=== PATIENT | male | born 1965 | race Caucasian/White ===

== ENCOUNTER 2016-11-02 08:23 | Inpatient (IN) | payer OTHER ==
[2016-11-02 08:50] VITALS: BMI 33.4
--- NOTE | 2016-11-02 12:15 | HP ---
COWS - Scale Resting Pulse: 0= SC 80 or Below Sweatin=Flushed/Facial Moisture Restless Observation: 1= Difficult to Sit Still Pupil Size: 0= Normal to Room Light Bone or Joint Aches: 2= Severe Diffuse Aches Runny Nose/ Eye Tearin= Runny Nose/Eyes GI Upset > 30mins: 2= Nausea/Diarrhea Tremor Observation: 2= Slight Tremor Visible Yawning Observation: 2= >3x During Session Anxiety or Irritability: 2=Irritable/Anxious Goose Flesh Skin: 3=Piloerection COWS Score: 18 CIWA Score - CIWA Score Nausea/Vomitin-Mild Nausea/No Vomiting Muscle Tremors: 4-Moderate,w/Arms Extend Anxiety: 3 Agitation: 4-Moderately Restless Paroxysmal Sweats: 3 Orientation: 0-Oriented Tacttile Disturbances: 0-None Auditory Disturbances: 0-None Visual Disturbances: 0-None Headache: 1-Very Mild CIWA-Ar Total Score: 16 Admission ROS S - HPI Chief Complaint: Pt is a 50yr old male with a history of alcohol, xanax and opioid dependence seeking detox for treatment. Allergies/Adverse Reactions: Allergies Allergy/AdvReac Type Severity Reaction Status Date / Time No Known Allergies Allergy Verified 08/04/16 09:30 History of Present Illness: pt is a 50yr old male with a history of alcohol, xanax and heroin dependence seeking detox for treatment. Exam Limitations: No Limitations - Ebola screening Have you traveled outside of the country in the last 21 days: No Have you had contact with anyone from an Ebola affected area: No Have you been sick,other than usual withdrawal symptoms: No Do you have a fever: No - Review of Systems Constitutional: Chills, Diaphoresis, Loss of Appetite, Night Sweats, Changes in sleep EENT: reports: Tearing, Nose Congestion, Other (CREEK both ears) Respiratory: reports: No Symptoms reported Cardiac: reports: No Symptoms Reported GI: reports: Nausea : reports: No Symptoms Reported Musculoskeletal: reports: Joint Pain, Muscle Pain Integumentary: reports: Flushing, Sweating Neuro: reports: Headache, Tingling, Tremors Endocrine: reports: Excessive Sweating, Flushing, Intolerance to Cold, Intolerance to Heat Hematology: reports: No Symptoms Reported Psychiatric: reports: Judgement Intact, Mood/Affect Appropiate, Orientated x3, Agitated, Anxious Other Systems: Reviewed and Negative Patient History - Patient Medical History Hx Anemia: No Hx Asthma: No Hx Chronic Obstructive Pulmonary Disease (COPD): No Hx Cancer: No Hx Cardiac Disorders: Yes (CAD) Hx Congestive Heart Failure: No Hx Hypertension: No Hx Hypercholesterolemia: Yes (LIPITOR 80MG) Hx Pacemaker: No HX Cerebrovascular Accident: No Hx Seizures: Yes (drug related seizure once in 2012) Hx Dementia: No Hx Diabetes: No Hx Gastrointestinal Disorders: No Hx Liver Disease: No Hx Genitourinary Disorders: No Hx Sexually Transmitted Disorders: No Hx Renal Disease (ESRD): No Hx Thyroid Disease: No Hx Human Immunodeficiency Virus (HIV): No Hx Hepatitis C: No Hx Depression: No Hx Suicide Attempt: No (denies) Hx Bipolar Disorder: No Hx Schizophrenia: No Other Medical History: anxiety - Patient Surgical History Past Surgical History: Yes Hx Neurologic Surgery: No Hx Cataract Extraction: No Hx Cardiac Surgery: Yes (3 stents placed in 2009) Hx Lung Surgery: No Hx Breast Surgery: No Hx Breast Biopsy: No Hx Abdominal Surgery: No Hx Appendectomy: Yes ( A CHILD) Hx Cholecystectomy: No Hx Genitourinary Surgery: No Hx Section: No Hx Orthopedic Surgery: Yes (spinal fusion lumbar region 2012) Other Surgical History: spinal fusion sx to lower back, 06/2013 Skin graft L leg as a child Anesthesia Reaction: No - PPD History Previous Implant?: Yes Documented Results: Negative w/o proof Implanted On Prior [facility] Admission?: Yes PPD to be Administered?: Yes - Reproductive History Patient is a Female of Child Bearing Age (11 -55 yrs old): No - Smoking Cessation Smoking history: Current every day smoker Have you smoked in the past 12 months: Yes Aproximately how many cigarettes per day: 20 Cigars Per Day: 0 Hx Chewing Tobacco Use: No Initiated information on smoking cessation: Yes 'Breaking Loose' booklet given: 11/02/16 - Substance & Tx. History Hx Alcohol Use: Yes Hx Substance Use: Yes Substance Use Type: Alcohol, Heroin, Opiates, Prescribed Hx Substance Use Treatment: Yes - Substances Abused Heroin Route: Injection Frequency: Daily Amount used: 12 bags Age of first use: 18 Date of Last Use: 11/01/16 Xanax Route: Oral Frequency: Daily Amount used: 12-16 mg. Age of first use: 35 Date of Last Use: 11/01/16 Alcohol-wine Route: Oral Frequency: Daily Amount used: 1 pt. Age of first use: 18 Date of Last Use: 11/08/16 Family Disease History - Family Disease History Family Disease History: Respiratory: Mother (asthma ,schizophrenia ), Other: Mother, Brother (DRUG) Admission Physical Exam [facility] - Vital Signs Vital Signs: Vital Signs - 24 hr 11/02/16 08:47 Temperature 98.6 F Pulse Rate 80 Respiratory 20 Rate Blood Pressure 156/86 - Physical General Appearance: Yes: Appropriately Dressed, Moderate Distress, Tremorous, Irritable, Sweating, Anxious HEENTM: Yes: Normal Voice Respiratory: Yes: Lungs Clear, Normal Breath Sounds, No Respiratory Distress Neck: Yes: No masses,lesions,Nodules Breast: Yes: Within Normal Limits Cardiology: Yes: Regular Rhythm, Regular Rate, S1, S2 Abdominal: Yes: Normal Bowel Sounds, Non Tender, Soft Genitourinary: Yes: Within Normal Limits Back: Yes: Normal Inspection Musculoskeletal: Yes: full range of Motion Extremities: Yes: Normal Capillary Refill, Normal Inspection, Tremors Neurological: Yes: Fully Oriented, Alert, Normal Response Integumentary: Yes: Normal Color, Diaphoresis, Track [place]ricks Lymphatic: Yes: Within Normal Limits - Diagnostic (1) Alcohol dependence with uncomplicated withdrawal Current Visit: Yes Status: Chronic (2) CAD (coronary artery disease) Current Visit: Yes Status: Chronic Qualifiers: Coronary Disease-Associated Artery/Lesion type: [place] artery [place] vs. transplanted heart: [place] heart Associated angina: without angina Qualified Code(s): I25.10 - Atherosclerotic heart disease of [place] coronary artery without angina pectoris (3) HTN (hypertension) Current Visit: Yes Status: Chronic Qualifiers: Hypertension type: essential hypertension Qualified Code(s): I10 - Essential (primary) hypertension (4) Hearing difficulty of both ears Current Visit: Yes Status: Chronic (5) Hypercholesterolemia Current Visit: Yes Status: Chronic (6) Nicotine dependence Current Visit: Yes Status: Chronic Qualifiers: Nicotine product type: cigarettes Substance use status: uncomplicated Qualified Code(s): F17.210 - Nicotine dependence, cigarettes, uncomplicated (7) Opioid dependence with withdrawal Current Visit: Yes Status: Chronic (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
[2016-11-02] MEDS ORDERED: MAG HYDROX/AL HYDROX/SIMETH 30 ML UNIT-DOSE CUP PO PRN (12:21)
[2016-11-02] MEDS ORDERED: diphenhydrAMINE HCL 50 MG CAPSULE PO PRN (12:21)
[2016-11-02] MEDS ORDERED: MAGNESIUM HYDROX 2400MG/30ML ORAL SUSPENSION 30 ML CUP PO PRN (12:21)
[2016-11-02] MEDS ORDERED: NICOTINE POLACRILEX 4 MG GUM BUC PRN (12:21)
[2016-11-02] MEDS ORDERED: ACETAMINOPHEN 325 MG TABLET (FP) PO PRN (12:21)
[2016-11-02] MEDS ORDERED: P-EPHED 60MG/TRIPROLIDI 2.5MG TABLET PO PRN (12:21)
[2016-11-02] MEDS ORDERED: LOPERAMIDE HCL 2 MG CAPSULE PO PRN (12:21)
[2016-11-02] MEDS ORDERED: MAGNESIUM CITRATE 300 ML BOTTLE PO PRN (12:21)
[2016-11-02] MEDS ORDERED: MENTHOL/PHENOL 1 EACH UD MM PRN (12:21)
[2016-11-02] MEDS ORDERED: IBUPROFEN 400 MG TABLET (FP) PO PRN ×2 (12:21→12:23)
[2016-11-02] MEDS ORDERED: guaiFENesin/D-METHORPHAN HB 10 ML UNIT-DOSE CUPS PO PRN (12:21)
[2016-11-02] MEDS ORDERED: diazePAM 5 MG TABLET PO ONE (12:28)
[2016-11-02] MEDS ORDERED: METHADONE HCL 10 MG TABLET (FOR DETOX USE ONLY) PO ONE ×2 (12:29→23:00)
[2016-11-02] MEDS: diazePAM 5 MG TABLET PO SCH ×2 (14:01→22:24)
--- NOTE | 2016-11-02 15:17 | EKG ---
Test Reason : Blood Pressure : / mmHG Vent. Rate : 066 BPM Atrial Rate : 066 BPM P-R Int : 148 ms QRS Dur : 090 ms QT Int : 404 ms P-R-T Axes : 027 063 049 degrees QTc Int : 423 ms NORMAL SINUS RHYTHM WITH SINUS ARRHYTHMIA NORMAL ECG NO PREVIOUS ECGS AVAILABLE Confirmed by RIDDHI TATUM MD ([id number]) on 11/02/2016 3:17:12 PM Referred By: Remberto Uribe Confirmed By:RIDDHI TATUM MD
[2016-11-02] MEDS: hydrOXYzine PAMOATE 50 MG CAPSULE (FP) PO PRN (17:39)
[2016-11-02] MEDS: diazePAM 5 MG TABLET PO PRN (17:39)
--- NOTE | 2016-11-02 18:25 | CONSULT ---
[facility] Psychiatric Consult - Data Date of interview: 11/02/16 Admission source: [facility] Identifying data: Another admission to [facility] for this 50 y/o male seeking detox treatment on for heroin,alcohol and sedative/anxiolytic dependence.Patient is ,a father of two,domiciled,disabled and supported on [facility] benefits. Substance Abuse History: - Smoking Cessation. Smoking history: Current every day smoker. Have you smoked in the past 12 months: Yes. Aproximately how many cigarettes per day: 20. Cigars Per Day: 0. Hx Chewing Tobacco Use: No. Initiated information on smoking cessation: Yes. 'Breaking Loose' booklet given : 11/02/16. - Substance & Tx. History. Hx Alcohol Use: Yes. Hx Substance Use : Yes. Substance Use Type: Alcohol, Heroin, Opiates, Prescribed. Hx Substance Use Treatment: Yes. - Substances Abused. Heroin. Route: Injection. Frequency: Daily. Amount used: 12 bags. Age of first use: 18. Date of Last Use: 11/01/16. Xanax. Route: Oral. Frequency: Daily. Amount used: 12-16 mg. Age of first use: 35. Date of Last Use: 11/01/16. Alcohol-wine. Route : Oral. Frequency: Daily. Amount used: 1 pt. Age of first use: 18. Date of Last Use: 11/08/16. Confirmed by the patient in this interview. Medical History: CAD (3 stents in 2009),hearing impediment (right ear),spinal fusion (lumbar spine),withdrawal-related seizures,hypertension, hypercholesterolemia and a history of appendectomy. Psychiatric History: No reported history of psychiatric hospitalizations.Mr Hartman declares,in this interview,that he is no longer in active OPD care ( diagnosis : panic disorder/anxiety disorder as per self-report).He has stopped going to [place] [facility].Patient has reportedly stopped taking psychotropic medications.No history of suicide attempts. Physical/Sexual Abuse/Trauma History: Patient denies. Additional Comment: Urine Drug Screen Results: OPI-Opiates, BZO-Benzodiazepines , MTD-Methadone, OXY-Oxycodone.Noted. Mental Status Exam - Mental Status Exam Alert and Oriented to: Time, Place, Person Cognitive Function: Good Patient Appearance: Well Groomed Mood: Hopeful, Euthymic Affect: Appropriate, Normal Range Patient Behavior: Appropriate, Cooperative Speech Pattern: Clear, Appropriate Voice Loudness: Normal Thought Process: Goal Oriented Thought Disorder: Not Present Hallucinations: Denies Suicidal Ideation: Denies Homicidal Ideation: Denies Insight/Judgement: Poor Sleep: Well Appetite: Good Muscle strength/Tone: Normal Gait/Station: Normal Psychiatric Findings - Problem List (Orient 1, 2,3) (1) Opioid dependence with withdrawal Current Visit: Yes Status: Chronic (2) Sedative/hypnotic withdrawal without complication Current Visit: Yes Status: Acute (3) Alcohol dependence Current Visit: Yes Status: Acute (4) Nicotine dependence Current Visit: Yes Status: Acute Qualifiers: Nicotine product type: cigarettes Substance use status: uncomplicated Qualified Code(s): F17.210 - Nicotine dependence, cigarettes, uncomplicated (5) Substance induced mood disorder Current Visit: Yes Status: Acute (6) CAD (coronary artery disease) Current Visit: Yes Status: Chronic Qualifiers: Coronary Disease-Associated Artery/Lesion type: [place] artery [place] vs. transplanted heart: [place] heart Associated angina: without angina Qualified Code(s): I25.10 - Atherosclerotic heart disease of [place] coronary artery without angina pectoris (7) HTN (hypertension) Current Visit: Yes Status: Chronic Qualifiers: Hypertension type: essential hypertension Qualified Code(s): I10 - Essential (primary) hypertension (8) Hearing difficulty of both ears Current Visit: Yes Status: Chronic (9) Hypercholesterolemia Current Visit: Yes Status: Chronic - Initial Treatment Plan Initial Treatment Plan: Psychoeducation.Detoxification.Patient declines to resume psychotropics other than those necessary for detox protocol.Observation.
[2016-11-02] MEDS: ATORVASTATIN CA 40 MG TABLET (FP) PO SCH (22:24)
[2016-11-02] MEDS: THIAMINE HCL 100 MG TABLET (FP) PO SCH (22:24)
[2016-11-02 23:07] LABS: URINE APPEARANCE CLEAR; URINE BILIRUBIN NEGATIVE (NEGATIVE); URINE BLOOD NEGATIVE (NEGATIVE); URINE COLOR YELLOW; URINE GLUCOSE (UA) NEGATIVE (NEGATIVE); URINE KETONE NEGATIVE (NEGATIVE); URINE LEUK ESTERASE NEGATIVE (NEGATIVE); URINE NITRITE NEGATIVE (NEGATIVE); URINE PROTEIN NEGATIVE (NEGATIVE); URINE UROBILINOGEN NEGATIVE E.U./dl (0.2-1.0)
[2016-11-03] MEDS: diazePAM 5 MG TABLET PO SCH ×3 (07:52→22:18)
[2016-11-03] MEDS ORDERED: NICOTINE 21 MG/24 HOURS TOPICAL PATCH TD SCH (10:00)
[2016-11-03] MEDS ORDERED: METHADONE HCL 10 MG TABLET (FOR DETOX USE ONLY) PO SCH (10:00)
[2016-11-03] MEDS: ASPIRIN 81 MG CHEWABLE TABLETS PO SCH (10:09)
[2016-11-03] MEDS: PRENATAL VITAMINS W/ FOLIC ACID TABLET (FP) PO SCH (10:09)
[2016-11-03] MEDS: diazePAM 5 MG TABLET PO PRN (10:09)
[2016-11-03] MEDS: METOPROLOL SUCCINATE 25 MG TAB.SR.24H (FP) PO SCH (10:09)
[2016-11-03] MEDS: NICOTINE 21 MG/24 HOURS TOPICAL PATCH TD SCH (10:10)
--- NOTE | 2016-11-03 11:14 | PN ---
[facility] CIWA - CIWA Score Nausea/Vomitin Muscle Tremors: 3 Anxiety: 3 Agitation: 2 Paroxysmal Sweats: 1-Minimal Palms Moist Orientation: 0-Oriented Tacttile Disturbances: 1-Very Mild Itch/Numbness Auditory Disturbances: 1-Very Mild Visual Disturbances: 1-Very Mild Sensitivity Headache: 2-Mild CIWA-Ar Total Score: 17 BHS COWS - Scale Resting Pulse: 1= [place] 81-100 Sweatin= Chills/Flushing Restless Observation: 3= Extraneous Movement Pupil Size: 1= Pupils >than Normal Bone or Joint Aches: 2= Severe Diffuse Aches Runny Nose/ Eye Tearin= Runny Nose/Eyes GI Upset > 30mins: 2= Nausea/Diarrhea Tremor Observation of Outstretched Hands: 2= Slight Tremor Visible Yawning Observation: 1= 1-2x During Session Anxiety or Irritability: 2=Irritable/Anxious Goose Flesh Skin: 0=Smooth Skin COWS Score: 17 S Progress Note (SOAP) Subjective: ALERT,IRRITABLE,ANXIOUS,INTERRUPTED SLEEP,TREMOR,PAIN IN THE BODY AND BACK Objective: 11/03/16 11:34 Vital Signs Temperature 98.8 F 11/03/16 10:23 Pulse Rate 75 11/03/16 10:23 Respiratory Rate 20 11/03/16 10:23 Blood Pressure 141/65 11/03/16 10:23 O2 Sat by Pulse Oximetry (%) EKG NSR WITH SINUS ARRHYTHMIA 11/03/16 11:35 Laboratory Last Values WBC 7.1 K/mm3 (4.0-10.0) 11/03/16 06:15 RBC 4.97 M/mm3 (4.00-5.60) 11/03/16 06:15 Hgb 15.5 GM/dL (11.7-16.9) 11/03/16 06:15 Hct 45.3 % (35.4-49) 11/03/16 06:15 MCV 91.2 fl (80-96) 11/03/16 06:15 MCHC 34.2 g/dl (32.0-35.9) 11/03/16 06:15 RDW 13.4 % (11.9-15.9) 11/03/16 06:15 Plt Count 156 K/MM3 (134-434) D 11/03/16 06:15 MPV 9.3 fl (7.5-11.1) 11/03/16 06:15 Sodium 139 mmol/L (136-145) 11/03/16 06:15 Potassium 4.3 mmol/L (3.5-5.1) 11/03/16 06:15 Chloride 103 mmol/L (98-107) 11/03/16 06:15 Carbon Dioxide 29 mmol/L (21-32) 11/03/16 06:15 Anion Gap 7 (8-16) L 11/03/16 06:15 BUN 11 mg/dL (7-18) D 11/03/16 06:15 Creatinine 0.6 mg/dL (0.7-1.3) L 11/03/16 06:15 Creat Clearance w eGFR > 60 (>60) 11/03/16 06:15 Random Glucose 128 mg/dL (74-106) H D 11/03/16 06:15 Calcium 8.6 mg/dL (8.5-10.1) 11/03/16 06:15 Total Bilirubin 0.3 mg/dL (0.2-1.0) D 11/03/16 06:15 AST 27 U/L (15-37) D 11/03/16 06:15 ALT 51 U/L (12-78) D 11/03/16 06:15 Alkaline Phosphatase 121 U/L (45-117) H 11/03/16 06:15 Total Protein 6.8 g/dl (6.4-8.2) 11/03/16 06:15 Albumin 3.8 g/dl (3.4-5.0) 11/03/16 06:15 Urine Color Yellow 11/02/16 21:23 Urine Appearance Clear 11/02/16 21:23 Urine pH 5.0 (5.0-8.0) 11/02/16 21:23 Ur Specific [place] 1.026 (1.001-1.035) 11/02/16 21:23 Urine Protein Negative (NEGATIVE) 11/02/16 21:23 Urine Glucose (UA) Negative (NEGATIVE) 11/02/16 21:23 Urine Ketones Negative (NEGATIVE) 11/02/16 21:23 Urine Blood Negative (NEGATIVE) 11/02/16 21:23 Urine Nitrite Negative (NEGATIVE) 11/02/16 21:23 Urine Bilirubin Negative (NEGATIVE) 11/02/16 21:23 Urine Urobilinogen Negative E.U./dl (0.2-1.0) 11/02/16 21:23 Ur Leukocyte Esterase Negative (NEGATIVE) 11/02/16 21:23 Hepatitis C Antibody >11.0 s/co ratio (0.0-0.9) H 11/02/16 13:00 Assessment: WITHDRAWAL SYMPTOM Plan: CONTINUE DETOX,BGM MONITORING BGM IS 118,HEPATITS C,BGM MONITORING,ADVISE FOLLOW UP WITH PMD AFTER DISCHARGE
[2016-11-03 11:21] LABS: ALBUMIN 3.8 g/dl (3.4-5.0); ANION GAP 7 (8-16); CALCIUM 8.6 mg/dL (8.5-10.1); CO2 29 mmol/L (21-32); GLUCOSE,RANDOM 128 mg/dL (74-106); SGOT/AST 27 U/L (15-37); SGPT/ALT 51 U/L (12-78)
[2016-11-03 11:22] LABS: ALK PHOS 121 U/L (45-117); BILIRUBIN,TOTAL 0.3 mg/dL (0.2-1.0); CREATININE 0.6 mg/dL (0.7-1.3); TOT PROT 6.8 g/dl (6.4-8.2)
[2016-11-03 11:27] LABS: MCH 31.2 pg (25.7-33.7); MCHC 34.2 g/dl (32.0-35.9); MEAN CELL VOLUME 91.2 fl (80-96); MEAN PLT VOLUME 9.3 fl (7.5-11.1); PLATELET COUNT 156 K/MM3 (134-434); RDW 13.4 % (11.9-15.9); WHITE BLOOD COUNT 7.1 K/mm3 (4.0-10.0)
[2016-11-03] MEDS: THIAMINE HCL 100 MG TABLET (FP) PO SCH (22:18)
[2016-11-03] MEDS: ATORVASTATIN CA 40 MG TABLET (FP) PO SCH (22:18)
[2016-11-04] MEDS: diazePAM 5 MG TABLET PO PRN ×2 (02:18→12:05)
[2016-11-04] MEDS: hydrOXYzine PAMOATE 50 MG CAPSULE (FP) PO PRN ×2 (02:19→12:06)
[2016-11-04] MEDS: PRENATAL VITAMINS W/ FOLIC ACID TABLET (FP) PO SCH (10:52)
[2016-11-04] MEDS: diazePAM 5 MG TABLET PO SCH ×2 (10:52→23:18)
[2016-11-04] MEDS: METHADONE HCL 5 MG TABLET (FOR DETOX USE ONLY) PO SCH (10:52)
[2016-11-04] MEDS: NICOTINE 21 MG/24 HOURS TOPICAL PATCH TD SCH (10:52)
[2016-11-04] MEDS: METOPROLOL SUCCINATE 25 MG TAB.SR.24H (FP) PO SCH (10:53)
[2016-11-04] MEDS: ASPIRIN 81 MG CHEWABLE TABLETS PO SCH (10:54)
--- NOTE | 2016-11-04 12:06 | PN ---
S CIWA - CIWA Score Nausea/Vomitin Muscle Tremors: 3 Anxiety: 3 Agitation: 2 Paroxysmal Sweats: 1-Minimal Palms Moist Orientation: 0-Oriented Tacttile Disturbances: 1-Very Mild Itch/Numbness Auditory Disturbances: 1-Very Mild Visual Disturbances: 1-Very Mild Sensitivity Headache: 2-Mild CIWA-Ar Total Score: 17 BHS COWS - Scale Resting Pulse: 0= [place] 80 or Below Sweatin= Chills/Flushing Restless Observation: 3= Extraneous Movement Pupil Size: 1= Pupils >than Normal Bone or Joint Aches: 2= Severe Diffuse Aches Runny Nose/ Eye Tearin= Runny Nose/Eyes GI Upset > 30mins: 2= Nausea/Diarrhea Tremor Observation of Outstretched Hands: 2= Slight Tremor Visible Yawning Observation: 1= 1-2x During Session Anxiety or Irritability: 2=Irritable/Anxious Goose Flesh Skin: 0=Smooth Skin COWS Score: 16 S Progress Note (SOAP) Subjective: ALERT,IRRITABLE,ANXIOUS,INTERRUPTED SLEEP,PAIN IN THE BODY AND BACK Objective: 11/04/16 12:04 Vital Signs Temperature 97.3 F L 11/04/16 09:52 Pulse Rate 67 11/04/16 09:52 Respiratory Rate 18 11/04/16 09:52 Blood Pressure 127/82 11/04/16 09:52 O2 Sat by Pulse Oximetry (%) Laboratory Last Values WBC 7.1 K/mm3 (4.0-10.0) 11/03/16 06:15 RBC 4.97 M/mm3 (4.00-5.60) 11/03/16 06:15 Hgb 15.5 GM/dL (11.7-16.9) 11/03/16 06:15 Hct 45.3 % (35.4-49) 11/03/16 06:15 MCV 91.2 fl (80-96) 11/03/16 06:15 MCHC 34.2 g/dl (32.0-35.9) 11/03/16 06:15 RDW 13.4 % (11.9-15.9) 11/03/16 06:15 Plt Count 156 K/MM3 (134-434) D 11/03/16 06:15 MPV 9.3 fl (7.5-11.1) 11/03/16 06:15 Sodium 139 mmol/L (136-145) 11/03/16 06:15 Potassium 4.3 mmol/L (3.5-5.1) 11/03/16 06:15 Chloride 103 mmol/L (98-107) 11/03/16 06:15 Carbon Dioxide 29 mmol/L (21-32) 11/03/16 06:15 Anion Gap 7 (8-16) L 11/03/16 06:15 BUN 11 mg/dL (7-18) D 11/03/16 06:15 Creatinine 0.6 mg/dL (0.7-1.3) L 11/03/16 06:15 Creat Clearance w eGFR > 60 (>60) 11/03/16 06:15 Random Glucose 128 mg/dL (74-106) H D 11/03/16 06:15 Calcium 8.6 mg/dL (8.5-10.1) 11/03/16 06:15 Total Bilirubin 0.3 mg/dL (0.2-1.0) D 11/03/16 06:15 AST 27 U/L (15-37) D 11/03/16 06:15 ALT 51 U/L (12-78) D 11/03/16 06:15 Alkaline Phosphatase 121 U/L (45-117) H 11/03/16 06:15 Total Protein 6.8 g/dl (6.4-8.2) 11/03/16 06:15 Albumin 3.8 g/dl (3.4-5.0) 11/03/16 06:15 Urine Color Yellow 11/02/16 21:23 Urine Appearance Clear 11/02/16 21:23 Urine pH 5.0 (5.0-8.0) 11/02/16 21:23 Ur Specific [place] 1.026 (1.001-1.035) 11/02/16 21:23 Urine Protein Negative (NEGATIVE) 11/02/16 21:23 Urine Glucose (UA) Negative (NEGATIVE) 11/02/16 21:23 Urine Ketones Negative (NEGATIVE) 11/02/16 21:23 Urine Blood Negative (NEGATIVE) 11/02/16 21:23 Urine Nitrite Negative (NEGATIVE) 11/02/16 21:23 Urine Bilirubin Negative (NEGATIVE) 11/02/16 21:23 Urine Urobilinogen Negative E.U./dl (0.2-1.0) 11/02/16 21:23 Ur Leukocyte Esterase Negative (NEGATIVE) 11/02/16 21:23 RPR Titer Nonreactive (NONREACTIVE) 11/03/16 06:15 Hepatitis C Antibody >11.0 s/co ratio (0.0-0.9) H 11/02/16 13:00 PATIENT HAD HISTORY OF HEPATITIS C FOR 30 YEARS,HAS BEEN UNDER THE CARE OF PMD AND SPECIALIST Assessment: 11/04/16 12:05 WITHDRAWAL SYMPTOM Plan: CONTINUE DETOX,BGM 137,CONTINUE BGM MONITORING
[2016-11-04] MEDS: ATORVASTATIN CA 40 MG TABLET (FP) PO SCH (23:18)
[2016-11-04] MEDS: THIAMINE HCL 100 MG TABLET (FP) PO SCH (23:18)
[2016-11-05] MEDS: PRENATAL VITAMINS W/ FOLIC ACID TABLET (FP) PO SCH (10:11)
[2016-11-05] MEDS: diazePAM 5 MG TABLET PO SCH ×2 (10:12→22:23)
[2016-11-05] MEDS: NICOTINE 21 MG/24 HOURS TOPICAL PATCH TD SCH (10:12)
[2016-11-05] MEDS: ASPIRIN 81 MG CHEWABLE TABLETS PO SCH (10:12)
[2016-11-05] MEDS: METHADONE HCL 5 MG TABLET (FOR DETOX USE ONLY) PO SCH (10:12)
[2016-11-05] MEDS: METOPROLOL SUCCINATE 25 MG TAB.SR.24H (FP) PO SCH (10:12)
--- NOTE | 2016-11-05 10:48 | PN ---
BHS Progress Note (SOAP) Subjective: interrupted sleep , sweats, insomnia , lbp Objective: 11/05/16 10:43 Vital Signs Temperature 99.5 F 11/05/16 10:14 Pulse Rate 75 11/05/16 10:14 Respiratory Rate 18 11/05/16 10:14 Blood Pressure 137/73 11/05/16 10:14 O2 Sat by Pulse Oximetry (%) Laboratory Tests 11/02/16 11/02/16 11/03/16 13:00 21:23 06:15 WBC 7.1 RBC 4.97 Hgb 15.5 Hct 45.3 MCV 91.2 MCHC 34.2 RDW 13.4 Plt Count 156 D MPV 9.3 Sodium Potassium Chloride Carbon Dioxide Anion Gap BUN Creatinine Creat Clearance w eGFR POC Glucometer Random Glucose Calcium Total Bilirubin AST ALT Alkaline Phosphatase Total Protein Albumin Urine Color Yellow Urine Appearance Clear Urine pH 5.0 Ur Specific [place] 1.026 Urine Protein Negative Urine Glucose (UA) Negative Urine Ketones Negative Urine Blood Negative Urine Nitrite Negative Urine Bilirubin Negative Urine Urobilinogen Negative Ur Leukocyte Esterase Negative RPR Titer Hepatitis C Antibody >11.0 H 11/03/16 11/03/16 11/04/16 06:15 06:15 07:29 WBC RBC Hgb Hct MCV MCHC RDW Plt Count MPV Sodium 139 Potassium 4.3 Chloride 103 Carbon Dioxide 29 Anion Gap 7 L BUN 11 D Creatinine 0.6 L Creat Clearance w eGFR > 60 POC Glucometer 137 Random Glucose 128 H D Calcium 8.6 Total Bilirubin 0.3 D AST 27 D ALT 51 D Alkaline Phosphatase 121 H Total Protein 6.8 Albumin 3.8 Urine Color Urine Appearance Urine pH Ur Specific [place] Urine Protein Urine Glucose (UA) Urine Ketones Urine Blood Urine Nitrite Urine Bilirubin Urine Urobilinogen Ur Leukocyte Esterase RPR Titer Nonreactive Hepatitis C Antibody 11/05/16 06:01 WBC RBC Hgb Hct MCV MCHC RDW Plt Count MPV Sodium Potassium Chloride Carbon Dioxide Anion Gap BUN Creatinine Creat Clearance w eGFR POC Glucometer 109 Random Glucose Calcium Total Bilirubin AST ALT Alkaline Phosphatase Total Protein Albumin Urine Color Urine Appearance Urine pH Ur Specific [place] Urine Protein Urine Glucose (UA) Urine Ketones Urine Blood Urine Nitrite Urine Bilirubin Urine Urobilinogen Ur Leukocyte Esterase RPR Titer Hepatitis C Antibody pt aox3 in nad ambulating Assessment: 11/05/16 10:43 withdrawal sx's lbp Plan: cont. detox increase fluids cont. motrin 800mg prn
[2016-11-05 17:50] VITALS: PULSE 71
[2016-11-05] MEDS: hydrOXYzine PAMOATE 50 MG CAPSULE (FP) PO PRN (17:58)
[2016-11-05] MEDS: ATORVASTATIN CA 40 MG TABLET (FP) PO SCH (22:22)
[2016-11-05] MEDS: THIAMINE HCL 100 MG TABLET (FP) PO SCH (22:22)
--- NOTE | 2016-11-06 08:43 | DS ---
[facility] Detox Discharge Summary Admission Date: 11/02/16 Discharge Date: 11/06/16 - History Present History: Alcohol Dependence, Opioid Dependence, Sedative Dependence - Physical Exam Results Vital Signs: Vital Signs Temperature 98.2 F 11/05/16 21:42 Pulse Rate 71 11/05/16 21:42 Respiratory Rate 18 11/06/16 03:30 Blood Pressure 114/74 11/05/16 21:42 O2 Sat by Pulse Oximetry (%) - Treatment Hospital Course: Detox Protocol Followed, Detoxed Safely, Responded well, Discharged Condition Good, Rehab Referral Accepted - Medication Discharge Medications: Ambulatory Orders Aspirin [ASA -] 81 mg PO DAILY #30 tab.chew 12/12/14 Atorvastatin Ca [Lipitor] 80 mg PO HS tablet 12/12/14 Metoprolol Succinate [Toprol XL -] 25 mg PO DAILY #30 tab.sr.24h 12/12/14 Quetiapine Fumarate [Seroquel] 100 mg PO HS #30 tablet 11/23/15 Hydroxyzine Pamoate [Vistaril -] 25 mg PO QID PRN 03/22/16 Ibuprofen 800 mg PO Q6H PRN 03/22/16 - Diagnosis (1) Alcohol dependence with uncomplicated withdrawal Current Visit: Yes Status: Chronic (2) CAD (coronary artery disease) Current Visit: Yes Status: Chronic Qualifiers: Coronary Disease-Associated Artery/Lesion type: [place] artery [place] vs. transplanted heart: [place] heart Associated angina: without angina Qualified Code(s): I25.10 - Atherosclerotic heart disease of [place] coronary artery without angina pectoris (3) HTN (hypertension) Current Visit: Yes Status: Chronic Qualifiers: Hypertension type: essential hypertension Qualified Code(s): I10 - Essential (primary) hypertension (4) Hearing difficulty of both ears Current Visit: Yes Status: Chronic (5) Hypercholesterolemia Current Visit: Yes Status: Chronic (6) Nicotine dependence Current Visit: Yes Status: Chronic Qualifiers: Nicotine product type: cigarettes Substance use status: uncomplicated Qualified Code(s): F17.210 - Nicotine dependence, cigarettes, uncomplicated (7) Opioid dependence with withdrawal Current Visit: Yes Status: Chronic (8) Sedative/hypnotic withdrawal without complication Current Visit: Yes Status: Chronic - AMA Did Patient Leave Against Medical Advice: No
[2016-11-06] MEDS: ASPIRIN 81 MG CHEWABLE TABLETS PO SCH (09:38)
[2016-11-06] MEDS: PRENATAL VITAMINS W/ FOLIC ACID TABLET (FP) PO SCH (09:38)
[2016-11-06] MEDS: METOPROLOL SUCCINATE 25 MG TAB.SR.24H (FP) PO SCH (09:39)
[2016-11-06] MEDS ORDERED: METHADONE HCL 5 MG TABLET (FOR DETOX USE ONLY) PO SCH (10:00)
[2016-11-06] MEDS ORDERED: diazePAM 5 MG TABLET PO SCH (10:00)
[2016-11-06] MEDS ORDERED: METHADONE HCL 10 MG TABLET (FOR DETOX USE ONLY) PO SCH (10:00)
[2016-11-06 10:03] VITALS: BP 117/70; TEMP 97.9
[2016-11-07] MEDS ORDERED: METHADONE HCL 5 MG TABLET (FOR DETOX USE ONLY) PO SCH (06:00)
== END 2016-11-06 09:50 | disposition home or self-care (01) | DRG 897 ==
LOC: YASAS 08:23 → Y6N 11:47
PROVIDERS: ADMIT Internal Medicine; ATTEND Internal Medicine
PROC: HZ2ZZZZ Detoxification Services for Substance Abuse Treatment (ICD-10-PCS; principal; 2016-11-06)
DX: F11.23 Opioid dependence with withdrawal (principal); F13.230 Sedative, hypnotic or anxiolytic dependence with withdrawal, uncomplicated; F10.230 Alcohol dependence with withdrawal, uncomplicated; F17.210 Nicotine dependence, cigarettes, uncomplicated; F19.24 Other psychoactive substance dependence with psychoactive substance-induced mood disorder; I25.10 Atherosclerotic heart disease of native coronary artery without angina pectoris; I10 Essential (primary) hypertension; E78.00 Pure hypercholesterolemia, unspecified
CPT/HCPCS: 36415; 71020-TC; 80053; 81003; 83036; 85027; 86593; 87522; 93005; 93010

== ENCOUNTER 2017-02-06 08:05 | Inpatient (IN) | payer OTHER ==
[2017-02-06 09:15] VITALS: BMI 32.6
--- NOTE | 2017-02-06 13:34 | HP ---
COWS - Scale Resting Pulse: 0= [place] 80 or Below Sweatin=Flushed/Facial Moisture Restless Observation: 1= Difficult to Sit Still Pupil Size: 0= Normal to Room Light Bone or Joint Aches: 2= Severe Diffuse Aches Runny Nose/ Eye Tearin= Runny Nose/Eyes GI Upset > 30mins: 2= Nausea/Diarrhea Tremor Observation: 1= Tremor Maynard, Not Seen Yawning Observation: 1= 1-2x During Session Anxiety or Irritability: 2=Irritable/Anxious Goose Flesh Skin: 0=Smooth Skin COWS Score: 13 CIWA Score - CIWA Score Nausea/Vomitin Muscle Tremors: 3 Anxiety: 4-Mod. Anxious/Guarded Agitation: 2 Paroxysmal Sweats: 4-Forehead w/Sweat Beads Orientation: 0-Oriented Tacttile Disturbances: 2-Mild Itch/Numbness/Burn Auditory Disturbances: 0-None Visual Disturbances: 2-Mild Sensitivity Headache: 0-None Present CIWA-Ar Total Score: 20 Admission ROS BHS - HPI Chief Complaint: "I had recovery in the past and I want to get clean again and get my life back. " Pt. is here to Detox from Heroin and Xanax. Allergies/Adverse Reactions: Allergies Allergy/AdvReac Type Severity Reaction Status Date / Time No Known Allergies Allergy Verified 08/04/16 09:30 History of Present Illness: Pt. is 51 YO male here to Detox from Heroin and Xanax. Pt. has had several previous Detox admissions at [facility]. Longest period without drug use: approx. 9 years (2004 -2014). Exam Limitations: No Limitations - Ebola screening Have you traveled outside of the country in the last 21 days: No Have you had contact with anyone from an Ebola affected area: No Have you been sick,other than usual withdrawal symptoms: No Do you have a fever: No - Review of Systems Constitutional: Chills, Diaphoresis, Fever, Loss of Appetite, Malaise, Night Sweats, Changes in sleep EENT: reports: Tearing, Dental Problems (Needs to Have root Canal process completed.) Respiratory: reports: No Symptoms reported Cardiac: reports: Palpitations GI: reports: Constipated, Diarrhea, Nausea, Poor Appetite, Abdominal cramping : reports: No Symptoms Reported Musculoskeletal: reports: Back Pain (Spinal Fusion surgery - Lumbosacral Area: 2015.) Integumentary: reports: No Symptoms Reported Neuro: reports: Numbness (Intermittent in Left Hand for the last 2-3 weeks.), Seizure (1 time only, 2014, due to Xanax withdrawal.), Tingling (Intermittent in Left Hand for the last 2-3 weeks), Tremors Endocrine: reports: No Symptoms Reported Hematology: reports: No Symptoms Reported Psychiatric: reports: Judgement Intact, Mood/Affect Appropiate, Orientated x3, Anxious, Depressed Other Systems: Reviewed and Negative Patient History - Patient Medical History Hx Anemia: No Hx Asthma: No Hx Chronic Obstructive Pulmonary Disease (COPD): No Hx Cancer: No Hx Cardiac Disorders: Yes (stents x3 (2009).) Hx Congestive Heart Failure: No Hx Hypertension: Yes (TOPROL XL, 25 MG DAILY) Hx Hypercholesterolemia: Yes (LIPITOR 80 MG DAILY) Hx Pacemaker: No HX Cerebrovascular Accident: No Hx Seizures: Yes (X 1, Due to Xanax Withdrawal, 2014) Hx Dementia: No Hx Diabetes: No Hx Gastrointestinal Disorders: No Hx Liver Disease: No Hx Genitourinary Disorders: No Hx Sexually Transmitted Disorders: No Hx Renal Disease (ESRD): No Hx Thyroid Disease: No Hx Human Immunodeficiency Virus (HIV): No (Last Tested: 2015: NEGATIVE.) Hx Hepatitis C: Yes (antibody positive - vl negative) Hx Depression: Yes Hx Suicide Attempt: No (PATIENT DENIES CURRENT SI / HI.) Hx Bipolar Disorder: No Hx Schizophrenia: No - Patient Surgical History Past Surgical History: Yes Hx Neurologic Surgery: No Hx Cataract Extraction: No Hx Cardiac Surgery: Yes (3 stents placed in 2009) Hx Lung Surgery: No Hx Breast Surgery: No Hx Breast Biopsy: No Hx Abdominal Surgery: No Hx Appendectomy: Yes ( A CHILD) Hx Cholecystectomy: No Hx Genitourinary Surgery: No Hx Section: No Hx Orthopedic Surgery: Yes (spinal fusion lumbar region 2014) Other Surgical History: spinal fusion sx to lower back, 06/2015 Skin graft L leg as a child Anesthesia Reaction: No - PPD History Previous Implant?: Yes Documented Results: Positive w/o proof Implanted On Prior [facility] Admission?: No PPD to be Administered?: No - Reproductive History Patient is a Female of Child Bearing Age (11 -55 yrs old): No (PATIENT IS MALE.) - Smoking Cessation Smoking history: Current every day smoker Have you smoked in the past 12 months: Yes Aproximately how many cigarettes per day: 20 Cigars Per Day: 0 Hx Chewing Tobacco Use: No Initiated information on smoking cessation: Yes 'Breaking Loose' booklet given: 02/06/17 (GIVEN ON UNIT.) - Substance & Tx. History Hx Alcohol Use: No Hx Substance Use: Yes Substance Use Type: Heroin, Tranquilizers Hx Substance Use Treatment: Yes (Previous Detox admissions at [facility].) - Substances Abused Heroin Route: Injection Frequency: Daily Amount used: 14 bags Age of first use: 18 Date of Last Use: 02/05/17 Xanax Route: Oral Frequency: Daily Amount used: 4-6 mg. Age of first use: 39 Date of Last Use: 02/03/17 Family Disease History - Family Disease History Family Disease History: Respiratory: Mother (asthma ,schizophrenia ), Other: Mother, Brother (DRUG (past).) Admission Physical Exam [facility] - Vital Signs Vital Signs: Vital Signs - 24 hr 02/06/17 09:11 Temperature 97.7 F Pulse Rate 60 Respiratory 18 Rate Blood Pressure 132/78 - Physical General Appearance: Yes: Nourished, Appropriately Dressed, Mild Distress, Tremorous, Sweating, Anxious HEENTM: Yes: Hearing grossly Normal, Normocephalic, Normal Voice, G[place], Pharynx Normal Respiratory: Yes: Chest Non-Tender, Lungs Clear, No Respiratory Distress Neck: Yes: No masses,lesions,Nodules, Supple, Trachea in good position Breast: Yes: Breast Exam Deferred Cardiology: Yes: Regular Rhythm, Regular Rate, S1, S2 Abdominal: Yes: Normal Bowel Sounds, Non Tender, Soft, Protuberent Genitourinary: Yes: Within Normal Limits Back: Yes: Decreased Range of Motion, Vertebral Tenderness Musculoskeletal: Yes: Gait Steady, Back pain, Joint Stiffness Extremities: Yes: Normal Range of Motion, Non-Tender, Tremors Neurological: Yes: Fully Oriented, Alert, Normal Mood/Affect, Normal Response Integumentary: Yes: Normal Color, Warm, Track Hendricks (Noted on Bilateral Forearms and Hands. Erythema and swelling noted at affected sites.) Lymphatic: Yes: Within Normal Limits - Diagnostic (1) HTN (hypertension) Current Visit: Yes Status: Chronic Qualifiers: Hypertension type: essential hypertension Qualified Code(s): I10 - Essential (primary) hypertension (2) Hypercholesterolemia Current Visit: Yes Status: Chronic (3) Nicotine dependence Current Visit: Yes Status: Chronic Qualifiers: Nicotine product type: cigarettes Substance use status: uncomplicated Qualified Code(s): F17.210 - Nicotine dependence, cigarettes, uncomplicated (4) Opioid dependence with withdrawal Current Visit: Yes Status: Acute (5) Sedative, hypnotic or anxiolytic dependence with withdrawal, uncomplicated Current Visit: Yes Status: Acute (6) History of heart artery stent Current Visit: Yes Status: Chronic (7) Abscess of right arm Current Visit: Yes Status: Acute Cleared for Admission S - Detox or Rehab [facility] Level of Care: Medically Managed Detox Regimen/Protocol: Methadone/Valium S Breath Alcohol Content Breath Alcohol Content: 0 Urine Drug Screen - Results Drug Screen Negative: No Urine Drug Screen Results: RAMONA-Cocaine, MTD-Methadone
[2017-02-06] MEDS ORDERED: guaiFENesin/D-METHORPHAN HB 10 ML UNIT-DOSE CUPS PO PRN (13:56)
[2017-02-06] MEDS ORDERED: IBUPROFEN 400 MG TABLET (FP) PO PRN (13:56)
[2017-02-06] MEDS ORDERED: MAG HYDROX/AL HYDROX/SIMETH 30 ML UNIT-DOSE CUP PO PRN (13:56)
[2017-02-06] MEDS ORDERED: ACETAMINOPHEN 325 MG TABLET (FP) PO PRN (13:56)
[2017-02-06] MEDS ORDERED: MAGNESIUM CITRATE 300 ML BOTTLE PO PRN (13:56)
[2017-02-06] MEDS ORDERED: P-EPHED 60MG/TRIPROLIDI 2.5MG TABLET PO PRN (13:56)
[2017-02-06] MEDS ORDERED: MAGNESIUM HYDROX 2400MG/30ML ORAL SUSPENSION 30 ML CUP PO PRN (13:56)
[2017-02-06] MEDS ORDERED: NICOTINE POLACRILEX 2 MG GUM BUC PRN (13:56)
[2017-02-06] MEDS ORDERED: MENTHOL/PHENOL 1 EACH UD MM PRN (13:56)
[2017-02-06] MEDS ORDERED: diphenhydrAMINE HCL 50 MG CAPSULE PO PRN (13:56)
[2017-02-06] MEDS ORDERED: diazePAM 5 MG TABLET PO PRN (13:56)
[2017-02-06] MEDS ORDERED: LIDOCAINE 5% TOPICAL PATCH TP ONE (14:03)
[2017-02-06] MEDS ORDERED: diazePAM 5 MG TABLET PO ONE (14:05)
[2017-02-06] MEDS ORDERED: METHADONE HCL 10 MG TABLET (FOR DETOX USE ONLY) PO ONE ×2 (14:08→23:00)
[2017-02-06] MEDS: NICOTINE 21 MG/24 HOURS TOPICAL PATCH TD SCH (14:51)
[2017-02-06] MEDS: diazePAM 5 MG TABLET PO SCH ×2 (14:52→22:52)
--- NOTE | 2017-02-06 15:49 | CONSULT ---
[facility] Psychiatric Consult - Data Date of interview: 02/06/17 Admission source: [facility] Identifying data: This is one of multiple admissions to [facility] for this 51 y/ o male seeking detox treatment on for heroin,alcohol and sedative/anxiolytic dependence.Patient is ,a father of two,domiciled, disabled and supported on [facility] benefits. Substance Abuse History: - Smoking Cessation. Smoking history: Current every day smoker. Have you smoked in the past 12 months: Yes. Aproximately how many cigarettes per day: 20. Cigars Per Day: 0. Hx Chewing Tobacco Use: No. Initiated information on smoking cessation: Yes. 'Breaking Loose' booklet given : 02/06/17 (GIVEN ON UNIT.). - Substance & Tx. History. Hx Alcohol Use: No. Hx Substance Use: Yes. Substance Use Type: Heroin, Tranquilizers. Hx Substance Use Treatment: Yes (Previous Detox admissions at [facility] - Substances Abused. Heroin. Route: Injection. Frequency: Daily. Amount used: 14 bags. Age of first use: 18. Date of Last Use: 02/05/17. Xanax. Route: Oral. Frequency: Daily. Amount used: 4-6 mg. Age of first use: 39. Date of Last Use: 02/03/17. Confirmed by patient. Medical History: History of CAD (3 stents in 2009),hearing impediment (right ear ),spinal fusion in 2014 (lumbar spine),withdrawal-related seizures (2014), hypertension,hypercholesterolemia and a history of appendectomy. Psychiatric History: Patient denies history of psychiatric hospitalizations.Mr Hartman reports that he stopped OPD care at [facility] about one year ago.No longer on psychotropic medications (own choice).Used to be prescribed xanax and seroquel.Diagnosed with Panic Disorder/MDD.Patient denies history of suicide attempts. Physical/Sexual Abuse/Trauma History: Patient denies. Additional Comment: Urine Drug Screen Results: RAMONA-Cocaine, MTD-Methadone.Noted. Mental Status Exam - Mental Status Exam Alert and Oriented to: Time, Place, Person Cognitive Function: Good Patient Appearance: Well Groomed Mood: Hopeful, Euthymic Affect: Appropriate, Normal Range Patient Behavior: Fatigued, Appropriate, Cooperative Speech Pattern: Clear Voice Loudness: Normal Thought Process: Goal Oriented Thought Disorder: Not Present Hallucinations: Denies Suicidal Ideation: Denies Homicidal Ideation: Denies Insight/Judgement: Poor Sleep: Well Appetite: Good Muscle strength/Tone: Normal Gait/Station: Normal Psychiatric Findings - Problem List ([place] 1, 2,3) (1) Opioid dependence with withdrawal Current Visit: Yes Status: Acute (2) Sedative, hypnotic or anxiolytic dependence with withdrawal, uncomplicated Current Visit: Yes Status: Acute (3) Nicotine dependence Current Visit: Yes Status: Acute Qualifiers: Nicotine product type: cigarettes Substance use status: uncomplicated Qualified Code(s): F17.210 - Nicotine dependence, cigarettes, uncomplicated (4) Substance induced mood disorder Current Visit: Yes Status: Acute (5) HTN (hypertension) Current Visit: Yes Status: Chronic Qualifiers: Hypertension type: essential hypertension Qualified Code(s): I10 - Essential (primary) hypertension (6) History of heart artery stent Current Visit: Yes Status: Chronic (7) Hypercholesterolemia Current Visit: Yes Status: Chronic (8) CAD (coronary artery disease) Current Visit: Yes Status: Chronic Qualifiers: Coronary Disease-Associated Artery/Lesion type: [place] artery [place] vs. transplanted heart: [place] heart Associated angina: without angina Qualified Code(s): I25.10 - Atherosclerotic heart disease of [place] coronary artery without angina pectoris (9) Hearing difficulty of both ears Current Visit: Yes Status: Chronic - Initial Treatment Plan Initial Treatment Plan: Psychoeducation.Detoxification.Observation.
[2017-02-06 17:21] LABS: URINE APPEARANCE CLEAR; URINE BILIRUBIN NEGATIVE (NEGATIVE); URINE BLOOD NEGATIVE (NEGATIVE); URINE COLOR YELLOW; URINE GLUCOSE (UA) NEGATIVE (NEGATIVE); URINE KETONE TRACE (NEGATIVE); URINE LEUK ESTERASE NEGATIVE (NEGATIVE); URINE NITRITE NEGATIVE (NEGATIVE); URINE PROTEIN NEGATIVE (NEGATIVE); URINE UROBILINOGEN NEGATIVE E.U./dl (0.2-1.0)
[2017-02-06] MEDS: ATORVASTATIN CA 40 MG TABLET (FP) PO SCH (22:52)
[2017-02-06] MEDS: SULFAMETHOXAZOLE/TRIMETHOPRIM 800MG/160MG D.S. TABLET PO SCH (22:52)
[2017-02-06] MEDS: THIAMINE HCL 100 MG TABLET (FP) PO SCH (22:53)
[2017-02-06] MEDS ORDERED: NALOXONE HCL 0.4 MG/ML VIAL ONE ×2 (22:58→23:00)
[2017-02-06] MEDS ORDERED: NALOXONE HCL 0.4 MG/ML VIAL IM ONE (23:03)
[2017-02-06] MEDS: BACITRACIN 0.9 GM PACKET TP SCH (23:11)
[2017-02-06] MEDS: LIDOCAINE PATCH REMOVAL MC SCH (23:18)
--- NOTE | 2017-02-06 23:23 | PN ---
BHS Progress Note Note: RESPONDED TO RAPID RESPONSE ON ARRIVAL PT NOTED LYING IN BED BARELY RESPONSIVE TO PAINFUL STIMULI, SHALLOW BREATHING PUPILS CONSTRICTED AND NON REACTIVE NARCAN 0.4MG GIVEN IM X1 TO R DELTOID VS 119/67 P 48 T 98.1 02 SAT ON NRB MASK 100 % BGM 143MG/DL EMS ACTIVATED PT RESPONDED TO NARCAN AWAKE, ALERT, AGITATED, SOME WHAT COMBATIVE DENIES USE OF ANY ILLICIT SUBSTANCES WHILE HERE REFUSING TO GO TO ER FOR EVAL D/W CLIENT MAY RETURN AFTER STABILIZED/EVAL A- OPIATE OVERDOSE P- O.4 MG NARCAN IM X1 DOSE STAT BGM TRANSFER TO [facility] FOR EVAL REPORT GIVEN TO ABEL MARTINEZ PT MAY RETURN AFTER STABILIZED
[2017-02-07] MEDS: diazePAM 5 MG TABLET PO SCH ×3 (06:02→22:12)
[2017-02-07 10:00] LABS: MCH 31.4 pg (25.7-33.7); MCHC 34.1 g/dl (32.0-35.9); MEAN PLT VOLUME 8.6 fl (7.5-11.1); PLATELET COUNT 177 K/MM3 (134-434); RDW 13.2 % (11.9-15.9); WHITE BLOOD COUNT 5.9 K/mm3 (4.0-10.0)
[2017-02-07] MEDS ORDERED: METHADONE HCL 10 MG TABLET (FOR DETOX USE ONLY) PO SCH (10:00)
[2017-02-07 10:21] LABS: ALBUMIN 3.8 g/dl (3.4-5.0); ALK PHOS 122 U/L (45-117); ANION GAP 8 (8-16); BILIRUBIN,TOTAL 0.6 mg/dL (0.2-1.0); CALCIUM 8.9 mg/dL (8.5-10.1); CO2 27 mmol/L (21-32); COCKROFT - GAULT 150.68; CREATININE 0.8 mg/dL (0.7-1.3); GLUCOSE,RANDOM 142 mg/dL (74-106); SGOT/AST 22 U/L (15-37); SGPT/ALT 31 U/L (12-78); TOT PROT 6.9 g/dl (6.4-8.2)
[2017-02-07] MEDS: NICOTINE 21 MG/24 HOURS TOPICAL PATCH TD SCH (10:37)
[2017-02-07] MEDS: ASPIRIN 81 MG CHEWABLE TABLETS PO SCH (10:37)
[2017-02-07] MEDS: BACITRACIN 0.9 GM PACKET TP SCH ×2 (10:37→22:19)
[2017-02-07] MEDS: PRENATAL VITAMINS W/ FOLIC ACID TABLET (FP) PO SCH (10:37)
[2017-02-07] MEDS: METOPROLOL SUCCINATE 25 MG TAB.SR.24H (FP) PO SCH (10:37)
[2017-02-07] MEDS: SULFAMETHOXAZOLE/TRIMETHOPRIM 800MG/160MG D.S. TABLET PO SCH ×2 (10:37→22:12)
--- NOTE | 2017-02-07 10:37 | EKG ---
Test Reason : Blood Pressure : / mmHG Vent. Rate : 065 BPM Atrial Rate : 065 BPM P-R Int : 134 ms QRS Dur : 092 ms QT Int : 400 ms P-R-T Axes : -13 056 043 degrees QTc Int : 416 ms NORMAL SINUS RHYTHM NORMAL ECG WHEN COMPARED WITH ECG OF 02-NOV-2016 13:31, NO SIGNIFICANT CHANGE WAS FOUND Confirmed by ARCHANA MARTIN MD ([id number]) on 02/07/2017 10:37:02 AM Referred By: Confirmed By:ARCHANA MARTIN MD
--- NOTE | 2017-02-07 11:49 | PN ---
[facility] CIWA - CIWA Score Nausea/Vomitin-No Nausea/No Vomiting Muscle Tremors: 4-Moderate,w/Arms Extend Anxiety: 4-Mod. Anxious/Guarded Agitation: 4-Moderately Restless Paroxysmal Sweats: 1-Minimal Palms Moist Orientation: 0-Oriented Tacttile Disturbances: 3-Moderate Itch/Numb/Burn Auditory Disturbances: 0-None Visual Disturbances: 0-None Headache: 0-None Present CIWA-Ar Total Score: 16 S COWS - Scale Resting Pulse: 1= [place] 81-100 Sweatin= Chills/Flushing Restless Observation: 3= Extraneous Movement Pupil Size: 2= Moderately Dilated Bone or Joint Aches: 2= Severe Diffuse Aches Runny Nose/ Eye Tearin= Nasal Congestion GI Upset > 30mins: 1= Stomach Cramp Tremor Observation of Outstretched Hands: 1= Tremor [place], Not Seen Yawning Observation: 1= 1-2x During Session Anxiety or Irritability: 2=Irritable/Anxious Goose Flesh Skin: 0=Smooth Skin COWS Score: 15 [facility] Progress Note (SOAP) Subjective: ANXIETY,TREMORS,SWEATS,INTERMITTENT SLEEP. Objective: 02/07/17 11:47 Vital Signs Temperature 98.7 F 02/07/17 10:24 Pulse Rate 84 02/07/17 10:24 Respiratory Rate 20 02/07/17 10:24 Blood Pressure 116/75 02/07/17 10:24 O2 Sat by Pulse Oximetry (%) Laboratory Last Values WBC 5.9 K/mm3 (4.0-10.0) 02/07/17 06:00 RBC 5.05 M/mm3 (4.00-5.60) 02/07/17 06:00 Hgb 15.8 GM/dL (11.7-16.9) 02/07/17 06:00 Hct 46.4 % (35.4-49) 02/07/17 06:00 MCV 92.0 fl (80-96) 02/07/17 06:00 MCHC 34.1 g/dl (32.0-35.9) 02/07/17 06:00 RDW 13.2 % (11.9-15.9) 02/07/17 06:00 Plt Count 177 K/MM3 (134-434) 02/07/17 06:00 MPV 8.6 fl (7.5-11.1) 02/07/17 06:00 Sodium 139 mmol/L (136-145) 02/07/17 06:00 Potassium 4.0 mmol/L (3.5-5.1) 02/07/17 06:00 Chloride 104 mmol/L (98-107) 02/07/17 06:00 Carbon Dioxide 27 mmol/L (21-32) 02/07/17 06:00 Anion Gap 8 (8-16) 02/07/17 06:00 BUN 14 mg/dL (7-18) 02/07/17 06:00 Creatinine 0.8 mg/dL (0.7-1.3) D 02/07/17 06:00 Creat Clearance w eGFR > 60 (>60) 02/07/17 06:00 Random Glucose 142 mg/dL (74-106) H D 02/07/17 06:00 Calcium 8.9 mg/dL (8.5-10.1) 02/07/17 06:00 Total Bilirubin 0.6 mg/dL (0.2-1.0) 02/07/17 06:00 AST 22 U/L (15-37) D 02/07/17 06:00 ALT 31 U/L (12-78) 02/07/17 06:00 Alkaline Phosphatase 122 U/L (45-117) H 02/07/17 06:00 Total Protein 6.9 g/dl (6.4-8.2) 02/07/17 06:00 Albumin 3.8 g/dl (3.4-5.0) 02/07/17 06:00 Urine Color Yellow 02/06/17 14:00 Urine Appearance Clear 02/06/17 14:00 Urine pH 5.0 (5.0-8.0) 02/06/17 14:00 Ur Specific [place] >= 1.030 (1.005-1.025) H 02/06/17 14:00 Urine Protein Negative (NEGATIVE) 02/06/17 14:00 Urine Glucose (UA) Negative (NEGATIVE) 02/06/17 14:00 Urine Ketones Trace (NEGATIVE) H 02/06/17 14:00 Urine Blood Negative (NEGATIVE) 02/06/17 14:00 Urine Nitrite Negative (NEGATIVE) 02/06/17 14:00 Urine Bilirubin Negative (NEGATIVE) 02/06/17 14:00 Urine Urobilinogen Negative E.U./dl (0.2-1.0) 02/06/17 14:00 Ur Leukocyte Esterase Negative (NEGATIVE) 02/06/17 14:00 RPR Titer Nonreactive (NONREACTIVE) 02/07/17 06:00 Assessment: 02/07/17 11:47 WITHDRAWAL SX Plan: CONTINUE DETOX
[2017-02-07] MEDS: hydrOXYzine PAMOATE 50 MG CAPSULE (FP) PO PRN (14:48)
[2017-02-07] MEDS: THIAMINE HCL 100 MG TABLET (FP) PO SCH (22:12)
[2017-02-07] MEDS: ATORVASTATIN CA 40 MG TABLET (FP) PO SCH (22:13)
[2017-02-07] MEDS: LIDOCAINE PATCH REMOVAL MC SCH (22:18)
[2017-02-08] MEDS ORDERED: METHADONE HCL 5 MG TABLET (FOR DETOX USE ONLY) PO SCH (10:00)
--- NOTE | 2017-02-08 10:22 | PN ---
[facility] CIWA - CIWA Score Nausea/Vomitin-Mild Nausea/No Vomiting Muscle Tremors: 4-Moderate,w/Arms Extend Anxiety: 4-Mod. Anxious/Guarded Agitation: 4-Moderately Restless Paroxysmal Sweats: 3 Orientation: 0-Oriented Tacttile Disturbances: 1-Very Mild Itch/Numbness Auditory Disturbances: 0-None Visual Disturbances: 0-None Headache: 0-None Present CIWA-Ar Total Score: 17 [facility] COWS - Scale Resting Pulse: 0= [place] 80 or Below Sweatin=Flushed/Facial Moisture Restless Observation: 1= Difficult to Sit Still Pupil Size: 0= Normal to Room Light Bone or Joint Aches: 2= Severe Diffuse Aches Runny Nose/ Eye Tearin= Runny Nose/Eyes GI Upset > 30mins: 2= Nausea/Diarrhea Tremor Observation of Outstretched Hands: 2= Slight Tremor Visible Yawning Observation: 1= 1-2x During Session Anxiety or Irritability: 2=Irritable/Anxious Goose Flesh Skin: 0=Smooth Skin COWS Score: 14 [facility] Progress Note (SOAP) Subjective: Anxiety,tremors,sweating,interrupted sleep,restless,nausea,diarrhea,muscle aches /spasm Objective: 02/08/17 10:21 Laboratory Tests 02/06/17 02/07/17 02/07/17 14:00 06:00 06:00 WBC 5.9 RBC 5.05 Hgb 15.8 Hct 46.4 MCV 92.0 MCHC 34.1 RDW 13.2 Plt Count 177 MPV 8.6 Sodium 139 Potassium 4.0 Chloride 104 Carbon Dioxide 27 Anion Gap 8 BUN 14 Creatinine 0.8 D Creat Clearance w eGFR > 60 Random Glucose 142 H D Calcium 8.9 Total Bilirubin 0.6 AST 22 D ALT 31 Alkaline Phosphatase 122 H Total Protein 6.9 Albumin 3.8 Urine Color Yellow Urine Appearance Clear Urine pH 5.0 Ur Specific [place] >= 1.030 H Urine Protein Negative Urine Glucose (UA) Negative Urine Ketones Trace H Urine Blood Negative Urine Nitrite Negative Urine Bilirubin Negative Urine Urobilinogen Negative Ur Leukocyte Esterase Negative RPR Titer 02/07/17 06:00 WBC RBC Hgb Hct MCV MCHC RDW Plt Count MPV Sodium Potassium Chloride Carbon Dioxide Anion Gap BUN Creatinine Creat Clearance w eGFR Random Glucose Calcium Total Bilirubin AST ALT Alkaline Phosphatase Total Protein Albumin Urine Color Urine Appearance Urine pH Ur Specific [place] Urine Protein Urine Glucose (UA) Urine Ketones Urine Blood Urine Nitrite Urine Bilirubin Urine Urobilinogen Ur Leukocyte Esterase RPR Titer Nonreactive labs noted Assessment: 02/08/17 10:22 Withdrawal sx. Plan: Continue detox
[2017-02-08] MEDS: METOPROLOL SUCCINATE 25 MG TAB.SR.24H (FP) PO SCH (10:41)
[2017-02-08] MEDS: diazePAM 5 MG TABLET PO SCH ×2 (10:41→22:18)
[2017-02-08] MEDS: NICOTINE 21 MG/24 HOURS TOPICAL PATCH TD SCH (10:41)
[2017-02-08] MEDS: ASPIRIN 81 MG CHEWABLE TABLETS PO SCH (10:41)
[2017-02-08] MEDS: LOPERAMIDE HCL 2 MG CAPSULE PO PRN (10:42)
[2017-02-08] MEDS: PRENATAL VITAMINS W/ FOLIC ACID TABLET (FP) PO SCH (10:42)
[2017-02-08] MEDS: SULFAMETHOXAZOLE/TRIMETHOPRIM 800MG/160MG D.S. TABLET PO SCH ×2 (10:42→22:18)
[2017-02-08] MEDS: BACITRACIN 0.9 GM PACKET TP SCH ×2 (10:42→22:18)
[2017-02-08] MEDS: hydrOXYzine PAMOATE 50 MG CAPSULE (FP) PO PRN (14:32)
[2017-02-08] MEDS: LIDOCAINE 5% TOPICAL PATCH TP SCH (17:20)
[2017-02-08] MEDS: LIDOCAINE PATCH REMOVAL MC SCH (22:18)
[2017-02-08] MEDS: THIAMINE HCL 100 MG TABLET (FP) PO SCH (22:18)
[2017-02-08] MEDS: ATORVASTATIN CA 40 MG TABLET (FP) PO SCH (22:18)
[2017-02-09] MEDS: LOPERAMIDE HCL 2 MG CAPSULE PO PRN (06:58)
[2017-02-09] MEDS ORDERED: METHADONE HCL 10 MG TABLET (FOR DETOX USE ONLY) PO SCH (10:00)
[2017-02-09] MEDS: METOPROLOL SUCCINATE 25 MG TAB.SR.24H (FP) PO SCH (10:36)
[2017-02-09] MEDS: ASPIRIN 81 MG CHEWABLE TABLETS PO SCH (10:36)
[2017-02-09] MEDS: SULFAMETHOXAZOLE/TRIMETHOPRIM 800MG/160MG D.S. TABLET PO SCH ×2 (10:36→23:18)
[2017-02-09] MEDS: LIDOCAINE 5% TOPICAL PATCH TP SCH (10:36)
[2017-02-09] MEDS: PRENATAL VITAMINS W/ FOLIC ACID TABLET (FP) PO SCH (10:36)
[2017-02-09] MEDS: BACITRACIN 0.9 GM PACKET TP SCH ×2 (10:36→23:19)
[2017-02-09] MEDS: NICOTINE 21 MG/24 HOURS TOPICAL PATCH TD SCH (10:36)
[2017-02-09] MEDS: diazePAM 5 MG TABLET PO SCH ×2 (10:38→23:19)
--- NOTE | 2017-02-09 20:28 | PN ---
[facility] Progress Note (SOAP) Subjective: Interrupted Sleep, Anxious, Hot / Cold sensations, Sweating, Diarrhea, H/A, Body Aches. Objective: PT. A & O X 3, OBSERVED AMBULATING ON UNIT. NO ACUTE DISTRESS. 02/09/17 20:25 Vital Signs Temperature 99.7 F H 02/09/17 17:45 Pulse Rate 67 02/09/17 17:45 Respiratory Rate 18 02/09/17 17:45 Blood Pressure 110/69 02/09/17 17:45 O2 Sat by Pulse Oximetry (%) Laboratory Tests 02/06/17 02/07/17 02/07/17 14:00 06:00 06:00 WBC 5.9 RBC 5.05 Hgb 15.8 Hct 46.4 MCV 92.0 MCHC 34.1 RDW 13.2 Plt Count 177 MPV 8.6 Sodium 139 Potassium 4.0 Chloride 104 Carbon Dioxide 27 Anion Gap 8 BUN 14 Creatinine 0.8 D Creat Clearance w eGFR > 60 Random Glucose 142 H D Calcium 8.9 Total Bilirubin 0.6 AST 22 D ALT 31 Alkaline Phosphatase 122 H Total Protein 6.9 Albumin 3.8 Urine Color Yellow Urine Appearance Clear Urine pH 5.0 Ur Specific [place] >= 1.030 H Urine Protein Negative Urine Glucose (UA) Negative Urine Ketones Trace H Urine Blood Negative Urine Nitrite Negative Urine Bilirubin Negative Urine Urobilinogen Negative Ur Leukocyte Esterase Negative RPR Titer 02/07/17 06:00 WBC RBC Hgb Hct MCV MCHC RDW Plt Count MPV Sodium Potassium Chloride Carbon Dioxide Anion Gap BUN Creatinine Creat Clearance w eGFR Random Glucose Calcium Total Bilirubin AST ALT Alkaline Phosphatase Total Protein Albumin Urine Color Urine Appearance Urine pH Ur Specific [place] Urine Protein Urine Glucose (UA) Urine Ketones Urine Blood Urine Nitrite Urine Bilirubin Urine Urobilinogen Ur Leukocyte Esterase RPR Titer Nonreactive LABS NOTED. Assessment: 02/09/17 20:27 WITHDRAWAL SYMPTOMS. Plan: CONTINUE DETOX.
[2017-02-09] MEDS: ATORVASTATIN CA 40 MG TABLET (FP) PO SCH (23:18)
[2017-02-09] MEDS: THIAMINE HCL 100 MG TABLET (FP) PO SCH (23:19)
[2017-02-09] MEDS: LIDOCAINE PATCH REMOVAL MC SCH (23:19)
[2017-02-10] MEDS ORDERED: METHADONE HCL 5 MG TABLET (FOR DETOX USE ONLY) PO SCH (06:00)
[2017-02-10] MEDS: hydrOXYzine PAMOATE 50 MG CAPSULE (FP) PO PRN (07:13)
[2017-02-10] MEDS: LOPERAMIDE HCL 2 MG CAPSULE PO PRN (07:13)
[2017-02-10 09:22] VITALS: BP 126/86; PULSE 72; TEMP 98.3
[2017-02-10] MEDS: SULFAMETHOXAZOLE/TRIMETHOPRIM 800MG/160MG D.S. TABLET PO SCH (09:30)
[2017-02-10] MEDS: NICOTINE 21 MG/24 HOURS TOPICAL PATCH TD SCH (09:30)
[2017-02-10] MEDS: PRENATAL VITAMINS W/ FOLIC ACID TABLET (FP) PO SCH (09:30)
[2017-02-10] MEDS: BACITRACIN 0.9 GM PACKET TP SCH (09:31)
[2017-02-10] MEDS: ASPIRIN 81 MG CHEWABLE TABLETS PO SCH (09:31)
[2017-02-10] MEDS ORDERED: diazePAM 5 MG TABLET PO SCH (10:00)
[2017-02-10] MEDS ORDERED: METHADONE HCL 10 MG TABLET (FOR DETOX USE ONLY) PO SCH (10:00)
--- NOTE | 2017-02-10 12:14 | DS ---
[facility] Detox Discharge Summary Admission Date: 02/06/17 Discharge Date: 02/10/17 - History Present History: Opioid Dependence, Sedative Dependence Pertinent Past History: HTN HLD Hepatitis C CAD Seizure disorder r/t benzo withdrawal PPD Positive - Physical Exam Results Vital Signs: Vital Signs Temperature 98.3 F 02/10/17 09:21 Pulse Rate 72 02/10/17 09:21 Respiratory Rate 20 02/10/17 09:21 Blood Pressure 126/86 02/10/17 09:21 O2 Sat by Pulse Oximetry (%) Pertinent Admission Physical Exam Findings: Withdrawal symptoms Laboratory Tests 02/06/17 02/07/17 02/07/17 14:00 06:00 06:00 WBC 5.9 RBC 5.05 Hgb 15.8 Hct 46.4 MCV 92.0 MCHC 34.1 RDW 13.2 Plt Count 177 MPV 8.6 Sodium 139 Potassium 4.0 Chloride 104 Carbon Dioxide 27 Anion Gap 8 BUN 14 Creatinine 0.8 D Creat Clearance w eGFR > 60 Random Glucose 142 H D Calcium 8.9 Total Bilirubin 0.6 AST 22 D ALT 31 Alkaline Phosphatase 122 H Total Protein 6.9 Albumin 3.8 Urine Color Yellow Urine Appearance Clear Urine pH 5.0 Ur Specific [place] >= 1.030 H Urine Protein Negative Urine Glucose (UA) Negative Urine Ketones Trace H Urine Blood Negative Urine Nitrite Negative Urine Bilirubin Negative Urine Urobilinogen Negative Ur Leukocyte Esterase Negative RPR Titer 02/07/17 06:00 WBC RBC Hgb Hct MCV MCHC RDW Plt Count MPV Sodium Potassium Chloride Carbon Dioxide Anion Gap BUN Creatinine Creat Clearance w eGFR Random Glucose Calcium Total Bilirubin AST ALT Alkaline Phosphatase Total Protein Albumin Urine Color Urine Appearance Urine pH Ur Specific [place] Urine Protein Urine Glucose (UA) Urine Ketones Urine Blood Urine Nitrite Urine Bilirubin Urine Urobilinogen Ur Leukocyte Esterase RPR Titer Nonreactive Labs noted - Treatment Hospital Course: Detox Protocol Followed, Detoxed Safely, Responded well, Discharged Condition Good - Medication Discharge Medications: Ambulatory Orders Aspirin [ASA -] 81 mg PO DAILY #30 tab.chew 12/12/14 Atorvastatin Ca [Lipitor] 80 mg PO HS tablet 12/12/14 Quetiapine Fumarate [Seroquel] 100 mg PO HS #30 tablet 11/23/15 Ibuprofen 800 mg PO Q6H PRN 03/22/16 Metoprolol Succinate [Toprol XL -] 25 mg PO DAILY #30 tab.sr.[id number] 11/06/16 - Diagnosis (1) Nicotine dependence Status: Chronic Qualifiers: Nicotine product type: cigarettes Substance use status: uncomplicated Qualified Code(s): F17.210 - Nicotine dependence, cigarettes, uncomplicated (2) Opioid dependence with withdrawal Status: Acute (3) Sedative, hypnotic or anxiolytic dependence with withdrawal, uncomplicated Status: Acute (4) CAD (coronary artery disease) Status: Chronic Qualifiers: Coronary Disease-Associated Artery/Lesion type: ruby artery [place] vs. transplanted heart: ruby heart Associated angina: without angina Qualified Code(s): I25.10 - Atherosclerotic heart disease of ruby coronary artery without angina pectoris (5) HTN (hypertension) Status: Chronic Qualifiers: Hypertension type: essential hypertension Qualified Code(s): I10 - Essential (primary) hypertension (6) Hypercholesterolemia Status: Chronic (7) Hepatitis C virus infection without hepatic coma Status: Chronic (8) Depression Status: Chronic (9) PPD positive Status: Chronic (10) Seizure disorder Status: Chronic - AMA Did Patient Leave Against Medical Advice: No
[2017-02-11] MEDS ORDERED: METHADONE HCL 5 MG TABLET (FOR DETOX USE ONLY) PO SCH (06:00)
== END 2017-02-10 09:47 | disposition home or self-care (01) | DRG 897 ==
LOC: YASAS 08:05 → Y3N 12:47
PROVIDERS: ADMIT Internal Medicine; ATTEND Internal Medicine
PROC: HZ2ZZZZ Detoxification Services for Substance Abuse Treatment (ICD-10-PCS; principal; 2017-02-06)
DX: F11.23 Opioid dependence with withdrawal (principal); F13.230 Sedative, hypnotic or anxiolytic dependence with withdrawal, uncomplicated; F17.210 Nicotine dependence, cigarettes, uncomplicated; F19.24 Other psychoactive substance dependence with psychoactive substance-induced mood disorder; F32.9 Major depressive disorder, single episode, unspecified; I25.10 Atherosclerotic heart disease of native coronary artery without angina pectoris; I10 Essential (primary) hypertension; E78.00 Pure hypercholesterolemia, unspecified; B18.2 Chronic viral hepatitis C; R76.11 Nonspecific reaction to tuberculin skin test without active tuberculosis; Z95.5 Presence of coronary angioplasty implant and graft; H91.93 Unspecified hearing loss, bilateral; Z98.1 Arthrodesis status; Z86.69 Personal history of other diseases of the nervous system and sense organs; Z91.5 Personal history of self-harm; T40.2X1A Poisoning by other opioids, accidental (unintentional), initial encounter; Y92.230 Patient room in hospital as the place of occurrence of the external cause
CPT/HCPCS: 36415; 80053; 81003; 85027; 86593; 93005; 93010

== ENCOUNTER 2017-02-06 23:38 | Emergency (ER) | payer OTHER ==
[2017-02-07 00:33] VITALS: TEMP 98; BMI 33.4
[2017-02-07] MEDS ORDERED: METOCLOPRAMIDE HCL INJECTION 10 MG/2 ML VIAL IVPB ONE (00:55)
[2017-02-07] MEDS ORDERED: METOCLOPRAMIDE HCL INJECTION 10 MG/2 ML VIAL ONE (01:11)
[2017-02-07 01:31] LABS: BASOPHIL 0.2 % (0-2.0); EOSINOPHIL 1.4 % (0-4.5); MCH 30.4 pg (25.7-33.7); MCHC 33.2 g/dl (32.0-35.9); MEAN CELL VOLUME 91.4 fl (80-96); NEUTROPHILS 67.7 % (42.8-82.8); PLATELET COUNT 202 K/MM3 (134-434); WHITE BLOOD COUNT 8.4 K/mm3 (4.0-10.0)
--- NOTE | 2017-02-07 02:04 | PDOC ---
History of Present Illness - General History Source: Patient Exam Limitations: No Limitations - History of Present Illness Initial Comments: 02/07/17 02:06 The patient is a 51 year old male brought via EMS from [facility], with a significant past medical history of HTN, CAD (cardiac stents x3), HLD and seizures (Due to Xanax Withdrawal, 2014), who presents to the emergency department after being found unresponsive at [facility]. The patient was given Narcan and became combative. He notes that he last used heroin yesterday and went into detox this morning, where he slept most of the day after allegedly receiving methadone and valium. That is when Narcan was given. He has had multiple visits to the detox center over the past 2 years. The patient denies chest pain, shortness of breath, headache and dizziness. Allergies: None Past surgical history: spinal fusion sx to lower back, 06/2013 Skin graft L leg as a child, spinal fusion lumbar region 2012, appendectomy, cardiac stents (x3) Social history: Alcohol, Heroin, Opiates and cigarette use (20 daily) <Ernst Leyva - Last Filed: 02/07/17 02:06> <Tucker Anderson - Last Filed: 02/07/17 02:24> - General Chief Complaint: Overdose Stated Complaint: OVERDOSE Time Seen by Provider: 02/06/17 23:54 Past History <Ernst Leyva - Last Filed: 02/07/17 02:06> - Past Medical History Anemia: No Asthma: No Cancer: No Cardiac Disorders: Yes (stents x3 (2009).) CVA: No COPD: No CHF: No Dementia: No Diabetes: No GI Disorders: No Disorders: No HTN: Yes (TOPROL XL, 25 MG DAILY) Hypercholesterolemia: Yes (LIPITOR 80 MG DAILY) Kidney Stones: No Liver Disease: No Suicide Attempt (Hx): No (PATIENT DENIES CURRENT SI / HI.) Seizures: Yes (X 1, Due to Xanax Withdrawal, 2014) Thyroid Disease: No - Surgical History Abdominal Surgery: No Appendectomy: Yes ( A CHILD) Cardiac Surgery: Yes (3 stents placed in 2009) Cholecystectomy: No Lung Surgery: No Neurologic Surgery: No Orthopedic Surgery: Yes (spinal fusion lumbar region 2014) - Reproductive History Testicular Surgery: No - Psycho/Social/Smoking Cessation Hx Anxiety: Yes Suicidal Ideation: No Smoking History: Current every day smoker Have you smoked in the past 12 months: Yes Number of Cigarettes Smoked Daily: 20 Cigars Per Day: 0 Information on smoking cessation initiated: No 'Breaking Loose' booklet given: 02/06/17 Hx Alcohol Use: No Drug/Substance Use Hx: Yes (heroin) Substance Use Type: Heroin, Tranquilizers Hx Substance Use Treatment: Yes (Previous Detox admissions at [facility].) <Tucker Anderson - Last Filed: 02/07/17 02:24> - Past Medical History Allergies/Adverse Reactions: Allergies Allergy/AdvReac Type Severity Reaction Status Date / Time No Known Allergies Allergy Verified 02/06/17 23:53 Home Medications: Ambulatory Orders Aspirin [ASA -] 81 mg PO DAILY #30 tab.chew 12/12/14 Atorvastatin Ca [Lipitor] 80 mg PO HS tablet 12/12/14 Quetiapine Fumarate [Seroquel] 100 mg PO HS #30 tablet 11/23/15 Ibuprofen 800 mg PO Q6H PRN 03/22/16 Metoprolol Succinate [Toprol XL -] 25 mg PO DAILY #30 tab.sr.24h 11/06/16 Review of Systems - Review of Systems Able to Perform ROS?: Yes Comments:: 02/07/17 02:07 CONSTITUTIONAL: (+) Unresponsive. No fever, no chills, no fatigue EYES: No visual changes ENT: No ear pain, no sore throat CARDIOVASCULAR: No chest pain, no palpitations RESPIRATORY: No cough, no SOB GI: No abdominal pain, no nausea, no vomiting, no constipation, no diarrhea GENITOURINARY: No dysuria, no frequency, no hematuria MUSKULOSKELETAL: No backpain, no joint pain, no myalgias SKIN: No rash NEURO: No headache <Ernst Leyva - Last Filed: 02/07/17 02:06> *Physical Exam - Vital Signs Last Vital Signs Temp Pulse Resp BP Pulse Ox 98.0 F 63 18 119/71 100 02/06/17 23:54 02/07/17 01:58 02/07/17 01:58 02/07/17 01:58 02/07/17 01:58 <Ernst Leyva - Last Filed: 02/07/17 02:06> - Vital Signs Last Vital Signs Temp Pulse Resp BP Pulse Ox 98.0 F 63 18 119/71 100 02/06/17 23:54 02/07/17 01:58 02/07/17 01:58 02/07/17 01:58 02/07/17 01:58 - Physical Exam Comments: 02/07/17 02:18 EXAMINATION CONSTITUTIONAL: Awake and alert; well-nourished; actively vomiting, diaphoretic , in distress HEAD: Normocephalic; atraumatic EYES: PERRL (pupils are dilated); EOM intact; ENMT: External appears normal; normal oropharynx NECK: Supple; non-tender; no cervical lymphadenopathy CARD: Normal S1, S2; no murmurs, rubs, or gallops RESP: Normal chest excursion with respiration; breath sounds clear and equal bilaterally; no wheezes, rhonchi, or rales ABD: Soft, non-distended; non-tender; no palpable organomegaly, no palpable hernias EXT: Normal ROM in all four extremities; non-tender to palpation; distal pulses intact SKIN: Warm, dry, +piloerection NEURO: Cranial nerves II through XII are grossly intact; motor is 5 of 54; no pronation drift; gait is stable <Tucker Anderson - Last Filed: 02/07/17 02:24> ED Treatment Course - LABORATORY CBC & Chemistry Diagram: 02/07/17 01:20 02/07/17 01:20 - ADDITIONAL ORDERS Additional order review: 02/07/17 01:20 RBC 5.08 MCV 91.4 MCHC 33.2 RDW 13.0 MPV 8.0 D Neutrophils % 67.7 Lymphocytes % 23.5 Monocytes % 7.2 Eosinophils % 1.4 Basophils % 0.2 - Medications Given in the ED: ED Medications Discontinued Medications Generic Name Dose Route Start Last Admin Trade Name Freq PRN Reason Stop Dose Admin Diphenhydramine HCl 25 mg 02/07/17 00:55 02/07/17 01:39 Benadryl Injection - IVPB 02/07/17 00:56 25 mg ONCE ONE Administration Metoclopramide HCl 10 mg 02/07/17 00:55 02/07/17 01:39 Reglan Injection - IVPB 02/07/17 00:56 10 mg ONCE ONE Administration <Ernst Leyva - Last Filed: 02/07/17 02:06> - LABORATORY CBC & Chemistry Diagram: 02/07/17 01:20 02/07/17 01:20 - ADDITIONAL ORDERS Additional order review: 02/07/17 01:20 RBC 5.08 MCV 91.4 MCHC 33.2 RDW 13.0 MPV 8.0 D Neutrophils % 67.7 Lymphocytes % 23.5 Monocytes % 7.2 Eosinophils % 1.4 Basophils % 0.2 - Medications Given in the ED: ED Medications Discontinued Medications Generic Name Dose Route Start Last Admin Trade Name Viktoriya PRN Reason Stop Dose Admin Diphenhydramine HCl 25 mg 02/07/17 00:55 02/07/17 01:39 Benadryl Injection - IVPB 02/07/17 00:56 25 mg ONCE ONE Administration Metoclopramide HCl 10 mg 02/07/17 00:55 02/07/17 01:39 Reglan Injection - IVPB 02/07/17 00:56 10 mg ONCE ONE Administration <Tucker Anderson - Last Filed: 02/07/17 02:24> Medical Decision Making - Medical Decision Making 02/07/17 02:20 Patient is a 51-year-old male with history of heroin abuse who was undergoing inpatient detox at [facility] when he was found unresponsive with shallow breathing requiring administration of IV Narcan. In the ER, patient is noted to be in acute appeared withdrawal with diaphoresis, nausea, vomiting, piloerection. Will hydrate the patient, we'll administer Reglan and Benadryl, I discussed the case with PAYROLL BOOKKEEPER at [facility] advised her that patient has an acute opiate withdrawal and will require administration of methadone. Will observe and transport back to [facility] for continuous inpatient detox when stable clinically. <Tucker Anderson - Last Filed: 02/07/17 02:24> *DC/Admit/Observation/Transfer - Attestations Scribe Attestion: 02/07/17 02:07 Documentation prepared by Ernst Leyva, acting as biomedical engineering supervisor for Tucker Anderson MD <Ernst Leyva - Last Filed: 02/07/17 02:06> <Tucker Anderson - Last Filed: 02/07/17 02:24> - Referrals Referrals: Remberto Uribe MD [Primary Care Provider] -
[2017-02-07 02:06] LABS: ALBUMIN 3.5 g/dl (3.4-5.0); ALK PHOS 112 U/L (45-117); ANION GAP 10 (8-16); BILIRUBIN,TOTAL 0.5 mg/dL (0.2-1.0); CALCIUM 8.6 mg/dL (8.5-10.1); CO2 23 mmol/L (21-32); COCKROFT - GAULT 205.5; CREATININE 0.6 mg/dL (0.7-1.3); GLUCOSE,RANDOM 116 mg/dL (74-106); SGPT/ALT 31 U/L (12-78); TOT PROT 6.8 g/dl (6.4-8.2)
[2017-02-07 02:07] LABS: MAGNESIUM 2.3 mg/dL (1.8-2.4)
[2017-02-07 02:08] LABS: SGOT/AST 34 U/L (15-37)
[2017-02-07] MEDS ORDERED: METHADONE HCL 10 MG TABLET PO ONE (02:08)
[2017-02-07] MEDS ORDERED: METHADONE HCL 10 MG TABLET ONE (02:10)
--- NOTE | 2017-02-07 03:48 | PDOC ---
*Physical Exam - Vital Signs Last Vital Signs Temp Pulse Resp BP Pulse Ox 98.0 F 63 18 119/71 100 02/06/17 23:54 02/07/17 01:58 02/07/17 01:58 02/07/17 01:58 02/07/17 01:58 ED Treatment Course - LABORATORY CBC & Chemistry Diagram: 02/07/17 01:20 02/07/17 01:20 - ADDITIONAL ORDERS Additional order review: Laboratory Results 02/07/17 01:20 Sodium 140 Potassium 4.7 Chloride 107 Carbon Dioxide 23 D Anion Gap 10 BUN 13 Creatinine 0.6 L Creat Clearance w eGFR > 60 Random Glucose 116 H Calcium 8.6 Magnesium 2.3 Total Bilirubin 0.5 D AST 34 D ALT 31 D Alkaline Phosphatase 112 Total Protein 6.8 Albumin 3.5 02/07/17 01:20 RBC 5.08 MCV 91.4 MCHC 33.2 RDW 13.0 MPV 8.0 D Neutrophils % 67.7 Lymphocytes % 23.5 Monocytes % 7.2 Eosinophils % 1.4 Basophils % 0.2 - Medications Given in the ED: ED Medications Discontinued Medications Generic Name Dose Route Start Last Admin Trade Name Teraq PRN Reason Stop Dose Admin Diphenhydramine HCl 25 mg 02/07/17 00:55 02/07/17 01:39 Benadryl Injection - IVPB 02/07/17 00:56 25 mg ONCE ONE Administration Methadone HCl 10 mg 02/07/17 02:08 02/07/17 02:13 Dolophine - PO 02/07/17 02:09 10 mg ONCE ONE Administration Metoclopramide HCl 10 mg 02/07/17 00:55 02/07/17 01:39 Reglan Injection - IVPB 02/07/17 00:56 10 mg ONCE ONE Administration *DC/Admit/Observation/Transfer Diagnosis at time of Disposition: Drug abuse - Discharge Dispostion Disposition: I.P. ALCOHOL/SUBS ABUSE REHAB Condition at time of disposition: Stable Admit: No - Referrals Referrals: Remberto Uribe MD [Primary Care Provider] - - Patient Instructions - Post Discharge Activity
[2017-02-07 05:48] VITALS: BP 121/78; PULSE 65
== END 2017-02-07 05:48 | disposition other institution (70) ==
LOC: JER 23:38
PROC: 3E033GC Introduction of Other Therapeutic Substance into Peripheral Vein, Percutaneous Approach (ICD-10-PCS; principal; 2017-02-06)
DX: F11.23 Opioid dependence with withdrawal (principal); I25.10 Atherosclerotic heart disease of native coronary artery without angina pectoris; I10 Essential (primary) hypertension; F17.210 Nicotine dependence, cigarettes, uncomplicated; Z95.5 Presence of coronary angioplasty implant and graft; G40.509 Epileptic seizures related to external causes, not intractable, without status epilepticus; E78.00 Pure hypercholesterolemia, unspecified
CPT/HCPCS: 36415; 80053; 83735; 85025; 99283-25

== ENCOUNTER 2020-10-02 10:53 | Inpatient (IN) | payer OTHER ==
[2020-10-02 11:56] VITALS: BMI 33.4
[2020-10-02] MEDS ORDERED: ACETAMINOPHEN 325 MG TABLET (FP) PO PRN ×2 (12:47)
[2020-10-02] MEDS ORDERED: MENTHOL/PHENOL 1 EACH UD MM PRN (12:47)
[2020-10-02] MEDS ORDERED: MAGNESIUM CITRATE 300 ML BOTTLE PO PRN (12:47)
[2020-10-02] MEDS ORDERED: METHADONE HCL 10 MG TABLET (FOR DETOX USE ONLY) PO ONE (12:47)
[2020-10-02] MEDS ORDERED: IBUPROFEN 400 MG TABLET (FP) PO PRN (12:47)
[2020-10-02] MEDS ORDERED: ONDANSETRON *ODT* 4 MG TABLET SL PRN (12:47)
[2020-10-02] MEDS ORDERED: cloNIDine HCL 0.1 MG TABLET PO PRN (12:47)
[2020-10-02] MEDS ORDERED: NICOTINE POLACRILEX 2 MG GUM BUC PRN (12:47)
[2020-10-02] MEDS ORDERED: METHOCARBAMOL 500 MG TABLET PO PRN (12:47)
[2020-10-02] MEDS ORDERED: MAGNESIUM HYDROX 2400MG/30ML ORAL SUSPENSION 30 ML CUP PO PRN (12:47)
[2020-10-02] MEDS ORDERED: BISMUTH SUBSALICYLATE 524 MG/30 ML UD PO PRN (12:47)
[2020-10-02] MEDS ORDERED: MAG HYDROX/AL HYDROX/SIMETH 30 ML UNIT-DOSE CUP PO PRN (12:47)
[2020-10-02] MEDS ORDERED: diazePAM 5 MG TABLET PO PRN (12:50)
[2020-10-02] MEDS: NICOTINE 21 MG/24 HOURS TOPICAL PATCH TD SCH (14:28)
[2020-10-02] MEDS: hydrOXYzine PAMOATE 25 MG CAPSULE (FP) PO SCH ×3 (14:28→22:50)
[2020-10-02] MEDS: ROSUVASTATIN CA 20 MG TABLET (FP) PO SCH (22:47)
[2020-10-02] MEDS: AMOX TR/POT CLAV 875MG/125MG TABLETS (FP) PO SCH (22:47)
[2020-10-02] MEDS: MELATONIN 5 MG TABLETS PO SCH (22:48)
[2020-10-02] MEDS: THIAMINE HCL 100 MG TABLET (FP) PO SCH (22:51)
[2020-10-03] MEDS: hydrOXYzine PAMOATE 25 MG CAPSULE (FP) PO SCH ×2 (06:40→10:25)
[2020-10-03] MEDS ORDERED: METHADONE HCL 5 MG TABLET (FOR DETOX USE ONLY) ONE (09:33)
[2020-10-03] MEDS ORDERED: METHADONE HCL 10 MG TABLET (FOR DETOX USE ONLY) ONE (09:33)
[2020-10-03] MEDS ORDERED: METHADONE (DETOX) 20 MG, METHADONE (DETOX) 5 MG PO ONE (10:00)
[2020-10-03] MEDS: AMOX TR/POT CLAV 875MG/125MG TABLETS (FP) PO SCH ×2 (10:24→22:00)
[2020-10-03] MEDS: ASPIRIN 81 MG CHEWABLE TABLETS PO SCH (10:24)
[2020-10-03] MEDS: PRENATAL VITAMINS W/ FOLIC ACID TABLET (FP) PO SCH (10:25)
[2020-10-03] MEDS: NICOTINE 21 MG/24 HOURS TOPICAL PATCH TD SCH (10:25)
[2020-10-03] MEDS: metoPROLOL SUCCINATE 25 MG TAB.SR.24H (FP) PO SCH (10:26)
[2020-10-03 10:51] LABS: HEMATOCRIT 40.9 % (35.4-49); HEMOGLOBIN 13.9 GM/dL (11.7-16.9); MEAN CELL VOLUME 91.2 fl (80-96); MEAN PLT VOLUME 8.6 fl (7.5-11.1); PLATELET COUNT 174 K/MM3 (134-434); RBC 4.49 M/mm3 (4.00-5.60); RDW 14.3 % (11.9-15.9)
[2020-10-03 11:01] LABS: CALCIUM 8.6 mg/dL (8.5-10.1)
[2020-10-03 11:02] LABS: ALBUMIN 3.3 g/dl (3.4-5.0); BLOOD UREA NITROGEN 11.4 mg/dL (7-18)
[2020-10-03 11:04] LABS: TOT PROT 6.3 g/dl (6.4-8.2)
[2020-10-03 11:06] LABS: CREATININE 0.6 mg/dL (0.55-1.3)
[2020-10-03 11:07] LABS: BILIRUBIN,TOTAL 1.5 mg/dL (0.2-1)
[2020-10-03] MEDS ORDERED: hydrOXYzine PAMOATE 25 MG CAPSULE (FP) PO PRN (13:49)
[2020-10-03] MEDS: MELATONIN 5 MG TABLETS PO SCH (22:00)
[2020-10-03] MEDS: ROSUVASTATIN CA 20 MG TABLET (FP) PO SCH (22:00)
[2020-10-03] MEDS: THIAMINE HCL 100 MG TABLET (FP) PO SCH (22:00)
[2020-10-04] MEDS ORDERED: DICYCLOMINE HCL 10 MG CAPSULE PO PRN (09:47)
[2020-10-04] MEDS ORDERED: SODIUM CHLORIDE NASAL SPRAY 44 ML BOTTLE NS PRN (09:48)
[2020-10-04] MEDS ORDERED: METHADONE HCL 10 MG TABLET (FOR DETOX USE ONLY) PO ONE (10:00)
[2020-10-04] MEDS: AMOX TR/POT CLAV 875MG/125MG TABLETS (FP) PO SCH (10:02)
[2020-10-04] MEDS: ASPIRIN 81 MG CHEWABLE TABLETS PO SCH (10:02)
[2020-10-04] MEDS: metoPROLOL SUCCINATE 25 MG TAB.SR.24H (FP) PO SCH (10:02)
[2020-10-04] MEDS: NICOTINE 21 MG/24 HOURS TOPICAL PATCH TD SCH (10:03)
[2020-10-04] MEDS: PRENATAL VITAMINS W/ FOLIC ACID TABLET (FP) PO SCH (10:03)
[2020-10-04 21:02] LABS: PH,URINE 6.5 (5.0-8.0); URINE APPEARANCE CLEAR; URINE BILIRUBIN NEGATIVE (NEGATIVE); URINE COLOR YELLOW; URINE GLUCOSE (UA) 3+ (NEGATIVE); URINE KETONE NEGATIVE (NEGATIVE); URINE LEUK ESTERASE NEGATIVE (NEGATIVE); URINE NITRITE NEGATIVE (NEGATIVE); URINE PROTEIN NEGATIVE (NEGATIVE); URINE UROBILINOGEN 0.2 mg/dL (0.2-1.0)
[2020-10-05] MEDS: ROSUVASTATIN CA 20 MG TABLET (FP) PO SCH (00:08)
[2020-10-05] MEDS: AMOX TR/POT CLAV 875MG/125MG TABLETS (FP) PO SCH ×2 (00:08→09:15)
[2020-10-05] MEDS: MELATONIN 5 MG TABLETS PO SCH (00:09)
[2020-10-05] MEDS: THIAMINE HCL 100 MG TABLET (FP) PO SCH (00:09)
[2020-10-05] MEDS ORDERED: METHADONE HCL 10 MG TABLET (FOR DETOX USE ONLY) ONE (08:49)
[2020-10-05] MEDS ORDERED: METHADONE HCL 5 MG TABLET (FOR DETOX USE ONLY) ONE (08:50)
[2020-10-05] MEDS: metoPROLOL SUCCINATE 25 MG TAB.SR.24H (FP) PO SCH (09:10)
[2020-10-05] MEDS: ASPIRIN 81 MG CHEWABLE TABLETS PO SCH (09:10)
[2020-10-05] MEDS: NICOTINE 21 MG/24 HOURS TOPICAL PATCH TD SCH (09:15)
[2020-10-05] MEDS: PRENATAL VITAMINS W/ FOLIC ACID TABLET (FP) PO SCH (09:15)
[2020-10-05 09:24] VITALS: BP 149/84; PULSE 70; TEMP 96.4
[2020-10-05] MEDS ORDERED: METHADONE (DETOX) 10 MG, METHADONE (DETOX) 5 MG PO ONE (10:00)
[2020-10-05] MEDS ORDERED: CYPROHEPTADINE HCL 4 MG TABLET PO SCH (11:00)
[2020-10-05] MEDS ORDERED: INSULIN (NOVOLOG) ASPART 100 UNITS/ML 10ML VIAL SQ SCH (11:00)
[2020-10-06] MEDS ORDERED: METHADONE HCL 10 MG TABLET (FOR DETOX USE ONLY) PO ONE (10:00)
[2020-10-07] MEDS ORDERED: METHADONE HCL 5 MG TABLET (FOR DETOX USE ONLY) PO ONE (06:00)
== END 2020-10-05 09:50 | disposition left against medical advice (07) | DRG 894 ==
LOC: YASAS 10:53 → Y3N 12:48
PROVIDERS: ADMIT Allergy & Immunology; ATTEND Allergy & Immunology
PROC: HZ2ZZZZ Detoxification Services for Substance Abuse Treatment (ICD-10-PCS; principal; 2020-10-02)
DX: F11.23 Opioid dependence with withdrawal (principal); F11.20 Opioid dependence, uncomplicated; L02.413 Cutaneous abscess of right upper limb; F13.230 Sedative, hypnotic or anxiolytic dependence with withdrawal, uncomplicated; F17.210 Nicotine dependence, cigarettes, uncomplicated; F19.24 Other psychoactive substance dependence with psychoactive substance-induced mood disorder; G40.909 Epilepsy, unspecified, not intractable, without status epilepticus; I25.10 Atherosclerotic heart disease of native coronary artery without angina pectoris; I10 Essential (primary) hypertension; Z95.5 Presence of coronary angioplasty implant and graft; I25.2 Old myocardial infarction; E78.00 Pure hypercholesterolemia, unspecified; J32.0 Chronic maxillary sinusitis; H91.93 Unspecified hearing loss, bilateral; B18.2 Chronic viral hepatitis C; Z95.2 Presence of prosthetic heart valve; Z98.1 Arthrodesis status
CPT/HCPCS: 36415; 80053; 81003; 85027; 86780; 93005; 93010; C9803; U0003

== ENCOUNTER 2020-10-17 08:31 | Inpatient (IN) | payer OTHER ==
[2020-10-17 10:25] VITALS: BMI 33.4
[2020-10-17] MEDS ORDERED: ACETAMINOPHEN 325 MG TABLET (FP) PO PRN ×2 (10:31)
[2020-10-17] MEDS ORDERED: NICOTINE POLACRILEX 2 MG GUM BUC PRN (10:31)
[2020-10-17] MEDS ORDERED: MENTHOL/PHENOL 1 EACH UD MM PRN (10:31)
[2020-10-17] MEDS ORDERED: IBUPROFEN 400 MG TABLET (FP) PO PRN ×2 (10:31→11:05)
[2020-10-17] MEDS ORDERED: BISMUTH SUBSALICYLATE 524 MG/30 ML UD PO PRN (10:31)
[2020-10-17] MEDS ORDERED: MAG HYDROX/AL HYDROX/SIMETH 30 ML UNIT-DOSE CUP PO PRN (10:31)
[2020-10-17] MEDS ORDERED: MAGNESIUM HYDROX 2400MG/30ML ORAL SUSPENSION 30 ML CUP PO PRN (10:31)
[2020-10-17] MEDS ORDERED: ONDANSETRON *ODT* 4 MG TABLET SL PRN (10:31)
[2020-10-17] MEDS ORDERED: MAGNESIUM CITRATE 300 ML BOTTLE PO PRN (10:31)
[2020-10-17] MEDS ORDERED: hydrOXYzine PAMOATE 25 MG CAPSULE (FP) PO ONE (10:51)
[2020-10-17] MEDS ORDERED: METHADONE HCL 10 MG TABLET (FOR DETOX USE ONLY) ONE (10:51)
[2020-10-17] MEDS ORDERED: NICOTINE 21 MG/24 HOURS TOPICAL PATCH ONE (10:54)
[2020-10-17] MEDS: NICOTINE 21 MG/24 HOURS TOPICAL PATCH TD SCH (10:54)
[2020-10-17] MEDS ORDERED: METHADONE HCL 10 MG TABLET (FOR DETOX USE ONLY) PO ONE (11:00)
[2020-10-17] MEDS ORDERED: LACTULOSE 20 GM/30 ML UDC (FOR ORAL USE ONLY) PO ONE (13:41)
[2020-10-17] MEDS: PRENATAL VITAMINS W/ FOLIC ACID TABLET (FP) PO SCH (14:03)
[2020-10-17] MEDS: METHOCARBAMOL 500 MG TABLET PO PRN (14:06)
[2020-10-17] MEDS: hydrOXYzine PAMOATE 25 MG CAPSULE (FP) PO SCH ×3 (14:09→22:53)
[2020-10-17] MEDS: diazePAM 5 MG TABLET PO PRN (14:21)
[2020-10-17] MEDS: ROSUVASTATIN CA 20 MG TABLET (FP) PO SCH (22:53)
[2020-10-17] MEDS: AMOX TR/POT CLAV 875MG/125MG TABLETS (FP) PO SCH (22:53)
[2020-10-17] MEDS: THIAMINE HCL 100 MG TABLET (FP) PO SCH (22:53)
[2020-10-17] MEDS: MELATONIN 5 MG TABLETS PO SCH (22:53)
[2020-10-18] MEDS ORDERED: P-EPHED 60MG/TRIPROLIDI 2.5MG TABLET PO PRN (04:22)
[2020-10-18] MEDS: diazePAM 5 MG TABLET PO PRN ×4 (05:10→22:16)
[2020-10-18] MEDS: hydrOXYzine PAMOATE 25 MG CAPSULE (FP) PO SCH (05:10)
[2020-10-18] MEDS ORDERED: hydrOXYzine PAMOATE 50 MG CAPSULE (FP) PO PRN (09:01)
[2020-10-18] MEDS ORDERED: METHADONE HCL 10 MG TABLET (FOR DETOX USE ONLY) ONE (09:57)
[2020-10-18] MEDS ORDERED: METHADONE HCL 5 MG TABLET (FOR DETOX USE ONLY) ONE (09:57)
[2020-10-18] MEDS ORDERED: METHADONE (DETOX) 20 MG, METHADONE (DETOX) 5 MG PO ONE (10:00)
[2020-10-18] MEDS: NICOTINE 21 MG/24 HOURS TOPICAL PATCH TD SCH (10:23)
[2020-10-18] MEDS: ASPIRIN 81 MG CHEWABLE TABLETS PO SCH (10:23)
[2020-10-18] MEDS: AMOX TR/POT CLAV 875MG/125MG TABLETS (FP) PO SCH ×2 (10:23→22:15)
[2020-10-18] MEDS: PRENATAL VITAMINS W/ FOLIC ACID TABLET (FP) PO SCH (10:24)
[2020-10-18 13:57] LABS: HEMATOCRIT 38.7 % (35.4-49); HEMOGLOBIN 13.4 GM/dL (11.7-16.9); MCH 31.3 pg (25.7-33.7); MCHC 34.7 g/dl (32.0-35.9); MEAN CELL VOLUME 90.2 fl (80-96); MEAN PLT VOLUME 8.7 fl (7.5-11.1); PLATELET COUNT 190 K/MM3 (134-434); RBC 4.29 M/mm3 (4.00-5.60); RDW 14.1 % (11.9-15.9); WHITE BLOOD COUNT 5.7 K/mm3 (4.0-10.0)
[2020-10-18 14:21] LABS: POTASSIUM 4.4 mmol/L (3.5-5.1)
[2020-10-18 14:26] LABS: ALBUMIN 3.4 g/dl (3.4-5.0); BLOOD UREA NITROGEN 11.8 mg/dL (7-18); CALCIUM 8.6 mg/dL (8.5-10.1)
[2020-10-18] MEDS: FLUTICASONE PROP 0.05% 16 GM NASAL SPRAY NS SCH ×2 (14:26→22:21)
[2020-10-18] MEDS: metoPROLOL SUCCINATE 25 MG TAB.SR.24H (FP) PO SCH (14:27)
[2020-10-18 14:30] LABS: CREATININE 0.7 mg/dL (0.55-1.3)
[2020-10-18 14:31] LABS: BILIRUBIN,TOTAL 0.6 mg/dL (0.2-1); TOT PROT 6.9 g/dl (6.4-8.2)
[2020-10-18] MEDS: INSULIN (NOVOLOG) ASPART 100 UNITS/ML 10ML VIAL SQ SCH ×2 (16:40→22:11)
[2020-10-18] MEDS: ROSUVASTATIN CA 20 MG TABLET (FP) PO SCH (22:14)
[2020-10-18] MEDS: SUVOREXANT 10 MG TABLET PO PRN (22:16)
[2020-10-18] MEDS: THIAMINE HCL 100 MG TABLET (FP) PO SCH (22:17)
[2020-10-18] MEDS: MELATONIN 5 MG TABLETS PO SCH (23:11)
[2020-10-19] MEDS: diazePAM 5 MG TABLET PO PRN ×2 (06:08→18:40)
[2020-10-19] MEDS ORDERED: INSULIN (NOVOLOG) ASPART 100 UNITS/ML 10ML VIAL ONE (06:24)
[2020-10-19] MEDS: INSULIN (NOVOLOG) ASPART 100 UNITS/ML 10ML VIAL SQ SCH ×4 (06:24→23:07)
[2020-10-19] MEDS ORDERED: METHADONE HCL 10 MG TABLET (FOR DETOX USE ONLY) PO ONE (10:00)
[2020-10-19] MEDS: ASPIRIN 81 MG CHEWABLE TABLETS PO SCH (10:34)
[2020-10-19] MEDS: AMOX TR/POT CLAV 875MG/125MG TABLETS (FP) PO SCH ×2 (10:35→22:56)
[2020-10-19] MEDS: FLUTICASONE PROP 0.05% 16 GM NASAL SPRAY NS SCH ×2 (10:35→23:08)
[2020-10-19] MEDS: NICOTINE 21 MG/24 HOURS TOPICAL PATCH TD SCH (10:36)
[2020-10-19] MEDS: cloNIDine HCL 0.1 MG TABLET PO PRN ×2 (10:36→18:40)
[2020-10-19] MEDS: metoPROLOL SUCCINATE 25 MG TAB.SR.24H (FP) PO SCH (10:39)
[2020-10-19] MEDS: METHOCARBAMOL 500 MG TABLET PO PRN (10:39)
[2020-10-19] MEDS: PRENATAL VITAMINS W/ FOLIC ACID TABLET (FP) PO SCH (10:39)
[2020-10-19] MEDS: ROSUVASTATIN CA 20 MG TABLET (FP) PO SCH (22:56)
[2020-10-19] MEDS: THIAMINE HCL 100 MG TABLET (FP) PO SCH (22:56)
[2020-10-19] MEDS: SUVOREXANT 10 MG TABLET PO PRN (22:58)
[2020-10-19] MEDS: MELATONIN 5 MG TABLETS PO SCH (23:07)
[2020-10-19] MEDS: TOLNAFTATE 1% CREAM 15 GM TUBE TP SCH (23:08)
[2020-10-20] MEDS: INSULIN (NOVOLOG) ASPART 100 UNITS/ML 10ML VIAL SQ SCH ×4 (06:35→23:15)
[2020-10-20] MEDS ORDERED: METHADONE HCL 10 MG TABLET (FOR DETOX USE ONLY) ONE (08:41)
[2020-10-20] MEDS ORDERED: METHADONE HCL 5 MG TABLET (FOR DETOX USE ONLY) ONE (08:41)
[2020-10-20] MEDS ORDERED: METHADONE (DETOX) 10 MG, METHADONE (DETOX) 5 MG PO ONE (10:00)
[2020-10-20] MEDS: NICOTINE 21 MG/24 HOURS TOPICAL PATCH TD SCH (10:44)
[2020-10-20] MEDS: AMOX TR/POT CLAV 875MG/125MG TABLETS (FP) PO SCH (10:44)
[2020-10-20] MEDS: PRENATAL VITAMINS W/ FOLIC ACID TABLET (FP) PO SCH (10:44)
[2020-10-20] MEDS: metoPROLOL SUCCINATE 25 MG TAB.SR.24H (FP) PO SCH (10:44)
[2020-10-20] MEDS: ASPIRIN 81 MG CHEWABLE TABLETS PO SCH (10:44)
[2020-10-20] MEDS: FLUTICASONE PROP 0.05% 16 GM NASAL SPRAY NS SCH ×2 (10:54→23:14)
[2020-10-20] MEDS: TOLNAFTATE 1% CREAM 15 GM TUBE TP SCH ×2 (10:55→23:14)
[2020-10-20] MEDS ORDERED: INSULIN (NOVOLOG) ASPART 100 UNITS/ML 10ML VIAL ONE ×2 (10:57→17:11)
[2020-10-20] MEDS: diazePAM 5 MG TABLET PO PRN (17:13)
[2020-10-20] MEDS: ROSUVASTATIN CA 20 MG TABLET (FP) PO SCH (23:14)
[2020-10-20] MEDS: MELATONIN 5 MG TABLETS PO SCH (23:14)
[2020-10-20] MEDS: THIAMINE HCL 100 MG TABLET (FP) PO SCH (23:14)
[2020-10-21] MEDS: diazePAM 5 MG TABLET PO PRN (01:49)
[2020-10-21] MEDS: INSULIN (NOVOLOG) ASPART 100 UNITS/ML 10ML VIAL SQ SCH ×2 (08:23→10:52)
[2020-10-21] MEDS ORDERED: INSULIN (NOVOLOG) ASPART 100 UNITS/ML 10ML VIAL ONE (08:23)
[2020-10-21] MEDS ORDERED: METHADONE HCL 10 MG TABLET (FOR DETOX USE ONLY) PO ONE (10:00)
[2020-10-21] MEDS: ASPIRIN 81 MG CHEWABLE TABLETS PO SCH (10:49)
[2020-10-21] MEDS: FLUTICASONE PROP 0.05% 16 GM NASAL SPRAY NS SCH (10:51)
[2020-10-21] MEDS: metoPROLOL SUCCINATE 25 MG TAB.SR.24H (FP) PO SCH (10:52)
[2020-10-21] MEDS: NICOTINE 21 MG/24 HOURS TOPICAL PATCH TD SCH (10:52)
[2020-10-21] MEDS: PRENATAL VITAMINS W/ FOLIC ACID TABLET (FP) PO SCH (10:52)
[2020-10-21] MEDS: TOLNAFTATE 1% CREAM 15 GM TUBE TP SCH (10:52)
[2020-10-21 13:08] VITALS: BP 123/67; PULSE 81; TEMP 97.5
[2020-10-22] MEDS ORDERED: METHADONE HCL 5 MG TABLET (FOR DETOX USE ONLY) PO ONE (06:00)
== END 2020-10-21 13:15 | disposition home or self-care (01) | DRG 897 ==
LOC: YASAS 08:31 → Y6N 13:00
PROVIDERS: ADMIT Allergy & Immunology; ATTEND Allergy & Immunology
PROC: HZ2ZZZZ Detoxification Services for Substance Abuse Treatment (ICD-10-PCS; principal; 2020-10-17)
DX: F11.23 Opioid dependence with withdrawal (principal); F19.282 Other psychoactive substance dependence with psychoactive substance-induced sleep disorder; F19.280 Other psychoactive substance dependence with psychoactive substance-induced anxiety disorder; F17.210 Nicotine dependence, cigarettes, uncomplicated; F41.0 Panic disorder [episodic paroxysmal anxiety]; F41.9 Anxiety disorder, unspecified; E11.9 Type 2 diabetes mellitus without complications; Z79.4 Long term (current) use of insulin; I25.10 Atherosclerotic heart disease of native coronary artery without angina pectoris; I10 Essential (primary) hypertension; Z95.5 Presence of coronary angioplasty implant and graft; H91.92 Unspecified hearing loss, left ear; K21.9 Gastro-esophageal reflux disease without esophagitis; R76.11 Nonspecific reaction to tuberculin skin test without active tuberculosis; Z98.1 Arthrodesis status; Z97.4 Presence of external hearing-aid
CPT/HCPCS: 36415; 80053; 82962; 85027; 86780; C9803; J0735; Q0162; U0003

== ENCOUNTER 2021-06-05 10:52 | Inpatient (IN) | payer OTHER ==
[2021-06-05 11:37] VITALS: BMI 34.2
[2021-06-05] MEDS ORDERED: MAGNESIUM HYDROX 2400MG/30ML ORAL SUSPENSION 30 ML CUP PO PRN (11:57)
[2021-06-05] MEDS ORDERED: cloNIDine HCL 0.1 MG TABLET PO PRN (11:57)
[2021-06-05] MEDS ORDERED: BISMUTH SUBSALICYLATE 524 MG/30 ML PO PRN (11:57)
[2021-06-05] MEDS ORDERED: NICOTINE 10 MG CARTRIDGE (INHALER) IH PRN (11:57)
[2021-06-05] MEDS ORDERED: MENTHOL/PHENOL 1 EACH UD MM PRN (11:57)
[2021-06-05] MEDS ORDERED: ONDANSETRON *ODT* 4 MG TABLET SL PRN (11:57)
[2021-06-05] MEDS ORDERED: IBUPROFEN 400 MG TABLET (FP) PO PRN (11:57)
[2021-06-05] MEDS ORDERED: MAG HYDROX/AL HYDROX/SIMETH 30 ML UNIT-DOSE CUP PO PRN (11:57)
[2021-06-05] MEDS ORDERED: ACETAMINOPHEN 325 MG TABLET (FP) PO PRN ×2 (11:57)
[2021-06-05] MEDS ORDERED: MAGNESIUM CITRATE 300 ML BOTTLE PO PRN (11:57)
[2021-06-05] MEDS ORDERED: hydrOXYzine PAMOATE 25 MG CAPSULE (FP) PO PRN (12:51)
[2021-06-05] MEDS ORDERED: methaDONE HCL 10 MG TABLET (FOR DETOX USE ONLY) PO ONE (13:30)
[2021-06-05] MEDS: CLINDAMYCIN HCL 150 MG CAPSULE (FP) PO SCH ×2 (13:34→23:12)
[2021-06-05] MEDS: NICOTINE 14 MG/24 HOURS TOPICAL PATCH TD SCH (13:35)
[2021-06-05] MEDS: PRENATAL VITAMINS W/ FOLIC ACID TABLET (FP) PO SCH (13:48)
[2021-06-05] MEDS ORDERED: hydrOXYzine PAMOATE 25 MG CAPSULE (FP) PO SCH (14:00)
[2021-06-05 17:07] LABS: HEMATOCRIT 41.7 % (35.4-49); HEMOGLOBIN 14.2 GM/dL (11.7-16.9); MCH 30.7 pg (25.7-33.7); MCHC 34.2 g/dl (32.0-35.9); MEAN CELL VOLUME 89.9 fl (80-96); MEAN PLT VOLUME 7.6 fl (7.5-11.1); PLATELET COUNT 265 10^3/uL (134-434); RBC 4.63 M/mm3 (4.00-5.60); RDW 15.5 % (11.9-15.9); WHITE BLOOD COUNT 6.3 K/mm3 (4.0-10.0)
[2021-06-05 17:26] LABS: ALBUMIN 3.7 g/dl (3.4-5.0); BLOOD UREA NITROGEN 13.2 mg/dL (7-18); CALCIUM 8.9 mg/dL (8.5-10.1)
[2021-06-05 17:29] LABS: CREATININE 0.7 mg/dL (0.55-1.3)
[2021-06-05 17:31] LABS: BILIRUBIN,TOTAL 0.6 mg/dL (0.2-1); TOT PROT 7.7 g/dl (6.4-8.2)
[2021-06-05] MEDS: metFORMIN HCL 500 MG TABLET (FP) PO SCH (18:03)
[2021-06-05] MEDS ORDERED: MELATONIN 5 MG TABLETS PO SCH (22:00)
[2021-06-05] MEDS ORDERED: SUVOREXANT 10 MG TABLET PO PRN (22:00)
[2021-06-05] MEDS ORDERED: INSULIN (LEVEMIR) 100 UNITS/ML UNITS SQ SCH (22:00)
[2021-06-05] MEDS: THIAMINE HCL 100 MG TABLET (FP) PO SCH (23:12)
[2021-06-06] MEDS: metFORMIN HCL 500 MG TABLET (FP) PO SCH ×3 (07:36→18:12)
[2021-06-06] MEDS: CLINDAMYCIN HCL 150 MG CAPSULE (FP) PO SCH ×4 (07:36→22:07)
[2021-06-06] MEDS ORDERED: methaDONE HCL 10 MG TABLET (FOR DETOX USE ONLY) ONE (09:11)
[2021-06-06] MEDS: metoPROLOL SUCCINATE 25 MG TAB.SR.24H (FP) PO SCH (10:24)
[2021-06-06] MEDS: PRENATAL VITAMINS W/ FOLIC ACID TABLET (FP) PO SCH (10:24)
[2021-06-06] MEDS: ASPIRIN 81 MG CHEWABLE TABLETS PO SCH (10:25)
[2021-06-06] MEDS: NICOTINE 14 MG/24 HOURS TOPICAL PATCH TD SCH (10:26)
[2021-06-06] MEDS: diazePAM 5 MG TABLET PO PRN (10:27)
[2021-06-06] MEDS: LIRAGLUTIDE 0.6 MG/0.1 ML PEN.INJCTR SQ SCH (11:17)
[2021-06-06] MEDS: INSULIN (NOVOLOG) ASPART 100 UNITS/ML 10ML VIAL SQ SCH ×3 (11:17→22:07)
[2021-06-06] MEDS ORDERED: FLU VACC QS2021-22(6MOS UP)/PF 60 MCG/0.5 ML SYRINGE IM ONE (12:00)
[2021-06-06] MEDS: THIAMINE HCL 100 MG TABLET (FP) PO SCH (22:07)
[2021-06-07] MEDS: metFORMIN HCL 500 MG TABLET (FP) PO SCH ×2 (07:15→17:55)
[2021-06-07] MEDS: CLINDAMYCIN HCL 150 MG CAPSULE (FP) PO SCH ×3 (07:15→22:23)
[2021-06-07] MEDS: INSULIN (NOVOLOG) ASPART 100 UNITS/ML 10ML VIAL SQ SCH ×4 (07:16→23:09)
[2021-06-07] MEDS ORDERED: methaDONE HCL 10 MG TABLET (FOR DETOX USE ONLY) PO ONE (10:00)
[2021-06-07] MEDS: ASPIRIN 81 MG CHEWABLE TABLETS PO SCH (10:05)
[2021-06-07] MEDS: METHOCARBAMOL 500 MG TABLET PO PRN ×2 (10:05→17:55)
[2021-06-07] MEDS: PRENATAL VITAMINS W/ FOLIC ACID TABLET (FP) PO SCH (10:05)
[2021-06-07] MEDS: metoPROLOL SUCCINATE 25 MG TAB.SR.24H (FP) PO SCH (10:05)
[2021-06-07] MEDS: NICOTINE 14 MG/24 HOURS TOPICAL PATCH TD SCH (10:05)
[2021-06-07] MEDS: LIRAGLUTIDE 0.6 MG/0.1 ML PEN.INJCTR SQ SCH (10:06)
[2021-06-07] MEDS: diazePAM 5 MG TABLET PO PRN ×3 (10:08→22:35)
[2021-06-07] MEDS: THIAMINE HCL 100 MG TABLET (FP) PO SCH (22:23)
[2021-06-08] MEDS: metFORMIN HCL 500 MG TABLET (FP) PO SCH ×2 (06:27→17:57)
[2021-06-08] MEDS: CLINDAMYCIN HCL 150 MG CAPSULE (FP) PO SCH ×3 (06:27→22:26)
[2021-06-08] MEDS: INSULIN (NOVOLOG) ASPART 100 UNITS/ML 10ML VIAL SQ SCH ×4 (07:28→22:27)
[2021-06-08] MEDS ORDERED: methaDONE HCL 10 MG TABLET (FOR DETOX USE ONLY) ONE (08:49)
[2021-06-08] MEDS: ASPIRIN 81 MG CHEWABLE TABLETS PO SCH (10:43)
[2021-06-08] MEDS: metoPROLOL SUCCINATE 25 MG TAB.SR.24H (FP) PO SCH (10:43)
[2021-06-08] MEDS: PRENATAL VITAMINS W/ FOLIC ACID TABLET (FP) PO SCH (10:43)
[2021-06-08] MEDS: NICOTINE 14 MG/24 HOURS TOPICAL PATCH TD SCH (10:44)
[2021-06-08] MEDS: LIRAGLUTIDE 0.6 MG/0.1 ML PEN.INJCTR SQ SCH (10:52)
[2021-06-08] MEDS: diazePAM 5 MG TABLET PO PRN ×3 (12:30→22:26)
[2021-06-08] MEDS: hydrOXYzine PAMOATE 25 MG CAPSULE (FP) PO PRN ×2 (12:30→22:26)
[2021-06-08] MEDS ORDERED: P-EPHED 60MG/TRIPROLIDI 2.5MG TABLET PO PRN (13:09)
[2021-06-08] MEDS ORDERED: SODIUM CHLORIDE NASAL SPRAY 44 ML BOTTLE NS PRN (13:10)
[2021-06-08] MEDS: THIAMINE HCL 100 MG TABLET (FP) PO SCH (22:26)
[2021-06-09] MEDS: CLINDAMYCIN HCL 150 MG CAPSULE (FP) PO SCH ×3 (06:50→22:41)
[2021-06-09] MEDS: metFORMIN HCL 500 MG TABLET (FP) PO SCH ×2 (06:50→18:04)
[2021-06-09] MEDS: INSULIN (NOVOLOG) ASPART 100 UNITS/ML 10ML VIAL SQ SCH ×4 (07:01→22:41)
[2021-06-09] MEDS ORDERED: methaDONE HCL 10 MG TABLET (FOR DETOX USE ONLY) PO ONE (10:00)
[2021-06-09] MEDS: ASPIRIN 81 MG CHEWABLE TABLETS PO SCH (10:58)
[2021-06-09] MEDS: hydrOXYzine PAMOATE 25 MG CAPSULE (FP) PO PRN (10:58)
[2021-06-09] MEDS: metoPROLOL SUCCINATE 25 MG TAB.SR.24H (FP) PO SCH (10:58)
[2021-06-09] MEDS: METHOCARBAMOL 500 MG TABLET PO PRN (11:01)
[2021-06-09] MEDS: NICOTINE 14 MG/24 HOURS TOPICAL PATCH TD SCH (11:04)
[2021-06-09] MEDS: LIRAGLUTIDE 0.6 MG/0.1 ML PEN.INJCTR SQ SCH (11:14)
[2021-06-09] MEDS: PRENATAL VITAMINS W/ FOLIC ACID TABLET (FP) PO SCH (11:14)
[2021-06-09 13:37] LABS: HIV INTERPRETATION NEGATIVE (NEGATIVE)
[2021-06-09] MEDS: THIAMINE HCL 100 MG TABLET (FP) PO SCH (22:41)
[2021-06-10] MEDS: metFORMIN HCL 500 MG TABLET (FP) PO SCH (06:18)
[2021-06-10] MEDS: CLINDAMYCIN HCL 150 MG CAPSULE (FP) PO SCH (06:18)
[2021-06-10] MEDS: INSULIN (NOVOLOG) ASPART 100 UNITS/ML 10ML VIAL SQ SCH ×2 (06:23→11:06)
[2021-06-10 07:01] VITALS: PULSE 86
[2021-06-10 09:28] VITALS: BP 131/83; TEMP 97.3
[2021-06-10] MEDS: NICOTINE 14 MG/24 HOURS TOPICAL PATCH TD SCH (11:06)
[2021-06-10] MEDS: metoPROLOL SUCCINATE 25 MG TAB.SR.24H (FP) PO SCH (11:06)
[2021-06-10] MEDS: ASPIRIN 81 MG CHEWABLE TABLETS PO SCH (11:06)
[2021-06-10] MEDS: LIRAGLUTIDE 0.6 MG/0.1 ML PEN.INJCTR SQ SCH (11:06)
[2021-06-10] MEDS: PRENATAL VITAMINS W/ FOLIC ACID TABLET (FP) PO SCH (11:06)
== END 2021-06-10 12:50 | disposition home or self-care (01) | DRG 897 ==
LOC: YASAS 10:52 → Y3N 12:38
PROVIDERS: ADMIT Allergy & Immunology; ATTEND Allergy & Immunology
PROC: HZ2ZZZZ Detoxification Services for Substance Abuse Treatment (ICD-10-PCS; principal; 2021-06-05)
DX: F11.23 Opioid dependence with withdrawal (principal); F10.20 Alcohol dependence, uncomplicated; F17.210 Nicotine dependence, cigarettes, uncomplicated; F41.9 Anxiety disorder, unspecified; F41.0 Panic disorder [episodic paroxysmal anxiety]; E78.5 Hyperlipidemia, unspecified; E11.9 Type 2 diabetes mellitus without complications; Z79.4 Long term (current) use of insulin; I25.10 Atherosclerotic heart disease of native coronary artery without angina pectoris; I10 Essential (primary) hypertension; I25.2 Old myocardial infarction; Z95.5 Presence of coronary angioplasty implant and graft; K21.9 Gastro-esophageal reflux disease without esophagitis; H91.8X2 Other specified hearing loss, left ear; H91.91 Unspecified hearing loss, right ear; Z97.4 Presence of external hearing-aid
CPT/HCPCS: 36415; 71046-TC-FY; 80053; 82962; 85027; 86780; 87389; 90686; 93005; 93010; C9803; G0008; U0003; U0005

== ENCOUNTER 2021-09-14 08:49 | Inpatient (IN) | payer OTHER ==
[2021-09-14] MEDS ORDERED: ACETAMINOPHEN 325 MG TABLET (FP) PO PRN ×2 (09:50)
[2021-09-14] MEDS ORDERED: NICOTINE 10 MG CARTRIDGE (INHALER) IH PRN (09:50)
[2021-09-14] MEDS ORDERED: cloNIDine HCL 0.1 MG TABLET PO PRN (09:50)
[2021-09-14] MEDS ORDERED: MAGNESIUM HYDROX 2400MG/30ML ORAL SUSPENSION 30 ML CUP PO PRN (09:50)
[2021-09-14] MEDS ORDERED: BISMUTH SUBSALICYLATE 524 MG/30 ML PO PRN (09:50)
[2021-09-14] MEDS ORDERED: methaDONE HCL 10 MG TABLET (FOR DETOX USE ONLY) PO ONE (09:50)
[2021-09-14] MEDS ORDERED: MENTHOL/PHENOL 1 EACH UD MM PRN (09:50)
[2021-09-14] MEDS ORDERED: diazePAM 5 MG TABLET PO PRN (09:50)
[2021-09-14] MEDS ORDERED: ONDANSETRON *ODT* 4 MG TABLET SL PRN (09:50)
[2021-09-14] MEDS ORDERED: IBUPROFEN 400 MG TABLET (FP) PO PRN (09:50)
[2021-09-14] MEDS ORDERED: MAG HYDROX/AL HYDROX/SIMETH 30 ML UNIT-DOSE CUP PO PRN (09:50)
[2021-09-14] MEDS ORDERED: METHOCARBAMOL 500 MG TABLET PO PRN (09:50)
[2021-09-14] MEDS ORDERED: MAGNESIUM CITRATE 300 ML BOTTLE PO PRN (09:50)
[2021-09-14 10:24] VITALS: BMI 34.0
[2021-09-14] MEDS: PRENATAL VITAMINS W/ FOLIC ACID TABLET (FP) PO SCH (11:34)
[2021-09-14] MEDS: hydrOXYzine PAMOATE 25 MG CAPSULE (FP) PO SCH ×4 (11:34→22:09)
[2021-09-14] MEDS: diazePAM 5 MG TABLET PO SCH ×3 (11:35→22:10)
[2021-09-14] MEDS: INSULIN SLIDING SCALE (NOVOLOG) 1 VIAL SQ SCH ×3 (11:35→22:14)
[2021-09-14] MEDS ORDERED: PATIENT'S OWN MEDICATION (NON-FORMULARY) (Dulaglutide [Trulicity] 0.75 MG/0.5 ML Pen.Injct SQ SCH (12:00)
[2021-09-14 15:59] LABS: HEMATOCRIT 44.6 % (35.4-49); HEMOGLOBIN 14.8 GM/dL (11.7-16.9); MCH 30.1 pg (25.7-33.7); MCHC 33.2 g/dl (32.0-35.9); MEAN CELL VOLUME 90.7 fl (80-96); MEAN PLT VOLUME 7.9 fl (7.5-11.1); PLATELET COUNT 221 10^3/uL (134-434); RBC 4.92 M/mm3 (4.00-5.60); RDW 15.8 % (11.9-15.9); WHITE BLOOD COUNT 5.4 K/mm3 (4.0-10.0)
[2021-09-14 16:02] LABS: ALBUMIN 3.9 g/dl (3.4-5.0)
[2021-09-14 16:05] LABS: CREATININE 0.6 mg/dL (0.55-1.3)
[2021-09-14 16:07] LABS: BILIRUBIN,TOTAL 0.7 mg/dL (0.2-1); TOT PROT 7.6 g/dl (6.4-8.2)
[2021-09-14] MEDS: metFORMIN HCL 500 MG TABLET (FP) PO SCH (17:30)
[2021-09-14] MEDS: DOXYCYCLINE HYCLATE 100 MG TABLET PO SCH (18:02)
[2021-09-14] MEDS ORDERED: INSULIN (LEVEMIR) 100 UNITS/ML UNITS SQ ONE (19:40)
[2021-09-14] MEDS: THIAMINE HCL 100 MG TABLET (FP) PO SCH (22:09)
[2021-09-14] MEDS: MELATONIN 5 MG TABLETS PO SCH (22:09)
[2021-09-14] MEDS: INSULIN (LEVEMIR) 100 UNITS/ML UNITS SQ SCH (22:13)
[2021-09-15] MEDS: metFORMIN HCL 500 MG TABLET (FP) PO SCH ×2 (06:21→16:37)
[2021-09-15] MEDS: hydrOXYzine PAMOATE 25 MG CAPSULE (FP) PO SCH ×5 (06:21→23:17)
[2021-09-15] MEDS: DOXYCYCLINE HYCLATE 100 MG TABLET PO SCH ×2 (06:21→18:54)
[2021-09-15] MEDS: diazePAM 5 MG TABLET PO SCH ×4 (06:24→23:17)
[2021-09-15] MEDS: INSULIN SLIDING SCALE (NOVOLOG) 1 VIAL SQ SCH ×4 (06:46→23:22)
[2021-09-15] MEDS ORDERED: methaDONE HCL 10 MG TABLET (FOR DETOX USE ONLY) ONE (09:41)
[2021-09-15] MEDS: ASPIRIN 81 MG CHEWABLE TABLETS PO SCH (11:02)
[2021-09-15] MEDS: metoPROLOL SUCCINATE 25 MG TAB.SR.24H (FP) PO SCH (11:02)
[2021-09-15] MEDS: PRENATAL VITAMINS W/ FOLIC ACID TABLET (FP) PO SCH (11:02)
[2021-09-15] MEDS: THIAMINE HCL 100 MG TABLET (FP) PO SCH (23:17)
[2021-09-15] MEDS: MELATONIN 5 MG TABLETS PO SCH (23:17)
[2021-09-15] MEDS: INSULIN (LEVEMIR) 100 UNITS/ML UNITS SQ SCH (23:22)
[2021-09-16] MEDS: DOXYCYCLINE HYCLATE 100 MG TABLET PO SCH (05:50)
[2021-09-16] MEDS: hydrOXYzine PAMOATE 25 MG CAPSULE (FP) PO SCH ×2 (05:50→10:42)
[2021-09-16] MEDS ORDERED: diazePAM 5 MG TABLET PO SCH (06:00)
[2021-09-16] MEDS: metFORMIN HCL 500 MG TABLET (FP) PO SCH (07:12)
[2021-09-16] MEDS: INSULIN SLIDING SCALE (NOVOLOG) 1 VIAL SQ SCH ×2 (07:12→12:53)
[2021-09-16] MEDS ORDERED: methaDONE HCL 10 MG TABLET (FOR DETOX USE ONLY) PO ONE (10:00)
[2021-09-16 10:02] VITALS: BP 117/66; PULSE 67; TEMP 97.1
[2021-09-16] MEDS: metoPROLOL SUCCINATE 25 MG TAB.SR.24H (FP) PO SCH (10:42)
[2021-09-16] MEDS: ASPIRIN 81 MG CHEWABLE TABLETS PO SCH (10:42)
[2021-09-16] MEDS: PRENATAL VITAMINS W/ FOLIC ACID TABLET (FP) PO SCH (10:43)
[2021-09-17] MEDS ORDERED: diazePAM 5 MG TABLET PO SCH (06:00)
[2021-09-18] MEDS ORDERED: diazePAM 5 MG TABLET PO ONE (06:00)
[2021-09-18] MEDS ORDERED: methaDONE HCL 10 MG TABLET (FOR DETOX USE ONLY) PO ONE (10:00)
== END 2021-09-16 11:41 | disposition left against medical advice (07) | DRG 894 ==
LOC: YASAS 08:49 → Y3N 12:35
PROVIDERS: ADMIT Allergy & Immunology; ATTEND Allergy & Immunology
PROC: HZ2ZZZZ Detoxification Services for Substance Abuse Treatment (ICD-10-PCS; principal; 2021-09-14)
DX: F11.23 Opioid dependence with withdrawal (principal); L03.113 Cellulitis of right upper limb; F13.230 Sedative, hypnotic or anxiolytic dependence with withdrawal, uncomplicated; F17.210 Nicotine dependence, cigarettes, uncomplicated; F41.9 Anxiety disorder, unspecified; F41.0 Panic disorder [episodic paroxysmal anxiety]; G40.909 Epilepsy, unspecified, not intractable, without status epilepticus; I25.10 Atherosclerotic heart disease of native coronary artery without angina pectoris; I10 Essential (primary) hypertension; Z95.5 Presence of coronary angioplasty implant and graft; K21.9 Gastro-esophageal reflux disease without esophagitis; H91.92 Unspecified hearing loss, left ear; Z20.822 Contact with and (suspected) exposure to COVID-19; Z86.11 Personal history of tuberculosis
CPT/HCPCS: 36415; 80053; 82962; 85027; 86780; C9803; U0003; U0005

== ENCOUNTER 2023-01-22 08:26 | Inpatient (IN) | payer OTHER ==
[2023-01-22 08:58] VITALS: BMI 30.4
[2023-01-22] MEDS ORDERED: ACETAMINOPHEN 325 MG TABLET (FP) PO PRN (09:33)
[2023-01-22] MEDS ORDERED: AMMONIUM LACTATE 12% LOTION 225 GM BOTTLE TP PRN (09:33)
[2023-01-22] MEDS ORDERED: NICOTINE 10 MG CARTRIDGE (INHALER) IH PRN (09:33)
[2023-01-22] MEDS ORDERED: BENZOCAINE/MENTHOL (CHLORASEPTIC ) LOZENGE MM PRN (09:33)
[2023-01-22] MEDS ORDERED: LOPERAMIDE HCL 2 MG CAPSULE PO PRN (09:33)
[2023-01-22] MEDS ORDERED: cloNIDine HCL 0.1 MG TABLET PO PRN (09:33)
[2023-01-22] MEDS ORDERED: COLLOIDAL OATMEAL 1 BAR EACH TP PRN (09:33)
[2023-01-22] MEDS ORDERED: NALOXONE HCL (KLOXXADO) 8 MG SPRAY NS PRN (09:33)
[2023-01-22] MEDS ORDERED: POLYETHYLENE GLYCOL (HEALTHYLAX) 3350 17 GM PACKET PO PRN (09:33)
[2023-01-22] MEDS ORDERED: IBUPROFEN 400 MG TABLET (FP) PO PRN (09:33)
[2023-01-22] MEDS ORDERED: guaiFENesin 600 MG TABLET.ER (FP) PO PRN (09:33)
[2023-01-22] MEDS ORDERED: NALOXONE HCL 0.4 MG/ML VIAL IM PRN (09:33)
[2023-01-22] MEDS ORDERED: BISMUTH SUBSALICYLATE 524 MG/30 ML PO PRN (09:33)
[2023-01-22] MEDS ORDERED: MAG HYDROX/AL HYDROX/SIMETH 30 ML UNIT-DOSE CUP PO PRN (09:33)
[2023-01-22] MEDS ORDERED: ONDANSETRON *ODT* 4 MG TABLET SL PRN (09:33)
[2023-01-22] MEDS ORDERED: BENZONATATE 200 MG CAPSULE PO PRN (09:33)
[2023-01-22] MEDS ORDERED: IBUPROFEN 600 MG TABLET (FP) PO PRN (09:33)
[2023-01-22] MEDS ORDERED: DICYCLOMINE HCL 10 MG CAPSULE PO PRN (09:33)
[2023-01-22] MEDS ORDERED: MAGNESIUM HYDROX 2400MG/30ML ORAL SUSPENSION 30 ML CUP PO PRN (09:33)
[2023-01-22] MEDS ORDERED: NICOTINE POLACRILEX 2 MG GUM BUC PRN (09:33)
[2023-01-22] MEDS ORDERED: PATIENT'S OWN MEDICATION (NON-FORMULARY) (Dulaglutide [Trulicity] 0.75 MG/0.5 ML Pen.Injct SQ SCH (09:45)
[2023-01-22] MEDS ORDERED: methaDONE HCL 10 MG TABLET (FOR DETOX USE ONLY) PO ONE (10:00)
[2023-01-22] MEDS: ASPIRIN 81 MG CHEWABLE TABLETS PO SCH (10:24)
[2023-01-22] MEDS: TICAGRELOR 90 MG TABLET PO SCH ×2 (10:25→22:26)
[2023-01-22] MEDS: metoPROLOL SUCCINATE 25 MG TAB.SR.24H (FP) PO SCH (10:25)
[2023-01-22] MEDS: LOSARTAN POTASSIUM 25 MG TABLET PO SCH (10:25)
[2023-01-22] MEDS: PATIENT'S OWN MEDICATION (NON-FORMULARY) (Icosapent Ethyl [Icosapent Ethyl] 1 GM Capsule) PO SCH ×2 (10:25→22:36)
[2023-01-22] MEDS: metFORMIN HCL 500 MG TABLET (FP) PO SCH ×2 (10:25→17:08)
[2023-01-22] MEDS ORDERED: INSULIN (NOVOLOG) ASPART 100 UNITS/ML 10ML VIAL ONE (10:28)
[2023-01-22] MEDS ORDERED: PRENATAL VITAMINS W/ FOLIC ACID TABLET (FP) PO ONE (10:29)
[2023-01-22] MEDS ORDERED: NICOTINE 21 MG/24 HOURS TOPICAL PATCH ONE (10:29)
[2023-01-22] MEDS: INSULIN SLIDING SCALE (NOVOLOG) 1 VIAL SQ SCH ×3 (10:33→22:32)
[2023-01-22] MEDS: NICOTINE 21 MG/24 HOURS TOPICAL PATCH TD SCH (10:33)
[2023-01-22] MEDS: PRENATAL VITAMINS W/ FOLIC ACID TABLET (FP) PO SCH (10:33)
[2023-01-22] MEDS ORDERED: methaDONE HCL 10 MG TABLET (FOR DETOX USE ONLY) ONE (10:37)
[2023-01-22] MEDS ORDERED: diazePAM 5 MG TABLET PO SCH (11:00)
[2023-01-22] MEDS ORDERED: diazePAM 5 MG TABLET PO ONE (14:00)
[2023-01-22] MEDS: FLUTICASONE PROP 0.05% 16 GM NASAL SPRAY NS SCH ×2 (17:05→22:35)
[2023-01-22] MEDS: diazePAM 5 MG TABLET PO SCH ×2 (18:01→22:33)
[2023-01-22] MEDS: P-EPHED 60MG/TRIPROLIDI 2.5MG TABLET PO PRN (20:24)
[2023-01-22] MEDS ORDERED: MELATONIN 5 MG TABLETS PO SCH (22:00)
[2023-01-22] MEDS: INSULIN (LEVEMIR) 100 UNITS/ML UNITS SQ SCH (22:30)
[2023-01-22] MEDS: THIAMINE HCL 100 MG TABLET (FP) PO SCH (22:32)
[2023-01-22] MEDS: ROSUVASTATIN CA 20 MG TABLET PO SCH (22:34)
[2023-01-23] MEDS: METHOCARBAMOL 500 MG TABLET PO PRN ×2 (03:55→22:27)
[2023-01-23] MEDS: P-EPHED 60MG/TRIPROLIDI 2.5MG TABLET PO PRN (03:56)
[2023-01-23] MEDS: diazePAM 5 MG TABLET PO SCH ×4 (05:30→22:31)
[2023-01-23] MEDS: INSULIN SLIDING SCALE (NOVOLOG) 1 VIAL SQ SCH ×4 (06:47→21:17)
[2023-01-23] MEDS ORDERED: INSULIN SLIDING SCALE (NOVOLOG) 1 VIAL SQ ONE (06:48)
[2023-01-23] MEDS: metFORMIN HCL 500 MG TABLET (FP) PO SCH ×2 (06:48→17:07)
[2023-01-23] MEDS: PRENATAL VITAMINS W/ FOLIC ACID TABLET (FP) PO SCH (10:13)
[2023-01-23] MEDS: TICAGRELOR 90 MG TABLET PO SCH ×2 (10:14→22:46)
[2023-01-23] MEDS: metoPROLOL SUCCINATE 25 MG TAB.SR.24H (FP) PO SCH (10:14)
[2023-01-23] MEDS: ASPIRIN 81 MG CHEWABLE TABLETS PO SCH (10:14)
[2023-01-23] MEDS: FLUTICASONE PROP 0.05% 16 GM NASAL SPRAY NS SCH ×2 (10:18→22:46)
[2023-01-23] MEDS: PATIENT'S OWN MEDICATION (NON-FORMULARY) (Icosapent Ethyl [Icosapent Ethyl] 1 GM Capsule) PO SCH ×2 (10:20→22:29)
[2023-01-23] MEDS: NICOTINE 21 MG/24 HOURS TOPICAL PATCH TD SCH (10:20)
[2023-01-23] MEDS: LOSARTAN POTASSIUM 25 MG TABLET PO SCH (11:08)
[2023-01-23 11:53] LABS: HEMATOCRIT 38.1 % (35.4-49); HEMOGLOBIN 13.1 GM/dL (11.7-16.9); MCH 30.1 pg (25.7-33.7); MCHC 34.4 g/dl (32.0-35.9); MEAN CELL VOLUME 87.3 fl (80-96); MEAN PLT VOLUME 7.8 fl (7.5-11.1); PLATELET COUNT 215 10^3/uL (134-434); RBC 4.36 M/mm3 (4.00-5.60); WHITE BLOOD COUNT 6.4 K/mm3 (4.0-10.0)
[2023-01-23 11:59] LABS: POTASSIUM 4.4 mmol/L (3.5-5.1)
[2023-01-23 12:06] LABS: ALBUMIN 3.7 g/dl (3.4-5.0); BLOOD UREA NITROGEN 12.4 mg/dL (7-18)
[2023-01-23 12:09] LABS: CREATININE 0.5 mg/dL (0.55-1.3)
[2023-01-23 12:11] LABS: BILIRUBIN,TOTAL 0.5 mg/dL (0.2-1); TOT PROT 7.1 g/dl (6.4-8.2)
[2023-01-23] MEDS ORDERED: NAPROXEN 500 MG TABLET PO PRN (13:26)
[2023-01-23] MEDS: LACTULOSE 20 GM/30 ML UDC (FOR ORAL USE ONLY) PO SCH ×2 (14:54→22:29)
[2023-01-23] MEDS ORDERED: SUVOREXANT 10 MG TABLET PO PRN (22:00)
[2023-01-23] MEDS ORDERED: hydrOXYzine PAMOATE 50 MG CAPSULE (FP) PO SCH (22:00)
[2023-01-23] MEDS: ROSUVASTATIN CA 20 MG TABLET PO SCH (22:28)
[2023-01-23] MEDS: THIAMINE HCL 100 MG TABLET (FP) PO SCH (22:28)
[2023-01-23] MEDS: GABAPENTIN 100 MG CAPSULE PO SCH (22:28)
[2023-01-23] MEDS: INSULIN (LEVEMIR) 100 UNITS/ML UNITS SQ SCH (22:30)
[2023-01-24] MEDS: GABAPENTIN 100 MG CAPSULE PO SCH ×3 (05:54→23:07)
[2023-01-24] MEDS: diazePAM 5 MG TABLET PO SCH ×3 (05:54→23:08)
[2023-01-24] MEDS: LACTULOSE 20 GM/30 ML UDC (FOR ORAL USE ONLY) PO SCH ×3 (05:54→23:05)
[2023-01-24] MEDS: metFORMIN HCL 500 MG TABLET (FP) PO SCH ×2 (06:17→17:03)
[2023-01-24] MEDS: INSULIN SLIDING SCALE (NOVOLOG) 1 VIAL SQ SCH ×4 (06:21→23:09)
[2023-01-24] MEDS ORDERED: methaDONE HCL 10 MG TABLET (FOR DETOX USE ONLY) PO ONE (10:00)
[2023-01-24] MEDS: FLUTICASONE PROP 0.05% 16 GM NASAL SPRAY NS SCH ×2 (10:14→23:06)
[2023-01-24] MEDS: PATIENT'S OWN MEDICATION (NON-FORMULARY) (Icosapent Ethyl [Icosapent Ethyl] 1 GM Capsule) PO SCH ×2 (10:14→23:07)
[2023-01-24] MEDS: ASPIRIN 81 MG CHEWABLE TABLETS PO SCH (10:15)
[2023-01-24] MEDS: metoPROLOL SUCCINATE 25 MG TAB.SR.24H (FP) PO SCH (10:15)
[2023-01-24] MEDS: TICAGRELOR 90 MG TABLET PO SCH ×2 (10:15→23:05)
[2023-01-24] MEDS: NICOTINE 21 MG/24 HOURS TOPICAL PATCH TD SCH (10:16)
[2023-01-24] MEDS: PRENATAL VITAMINS W/ FOLIC ACID TABLET (FP) PO SCH (10:16)
[2023-01-24] MEDS: METHOCARBAMOL 500 MG TABLET PO PRN (10:17)
[2023-01-24] MEDS: LOSARTAN POTASSIUM 25 MG TABLET PO SCH (10:18)
[2023-01-24 17:29] VITALS: RESP 18
[2023-01-24] MEDS: ROSUVASTATIN CA 20 MG TABLET PO SCH (23:05)
[2023-01-24] MEDS: THIAMINE HCL 100 MG TABLET (FP) PO SCH (23:07)
[2023-01-24] MEDS: INSULIN (LEVEMIR) 100 UNITS/ML UNITS SQ SCH (23:10)
[2023-01-25] MEDS: GABAPENTIN 100 MG CAPSULE PO SCH (05:58)
[2023-01-25] MEDS ORDERED: diazePAM 5 MG TABLET PO SCH (06:00)
[2023-01-25] MEDS: LACTULOSE 20 GM/30 ML UDC (FOR ORAL USE ONLY) PO SCH (06:00)
[2023-01-25] MEDS: metFORMIN HCL 500 MG TABLET (FP) PO SCH (07:08)
[2023-01-25] MEDS: INSULIN SLIDING SCALE (NOVOLOG) 1 VIAL SQ SCH ×2 (07:09→10:47)
[2023-01-25 09:02] VITALS: BP 140/74; PULSE 60; TEMP 98.1
[2023-01-25] MEDS ORDERED: TRIMETHOBENZAMIDE HCL 200MG/2ML INJ IM ONE (10:08)
[2023-01-25] MEDS: ASPIRIN 81 MG CHEWABLE TABLETS PO SCH (10:46)
[2023-01-25] MEDS: LOSARTAN POTASSIUM 25 MG TABLET PO SCH (10:46)
[2023-01-25] MEDS: TICAGRELOR 90 MG TABLET PO SCH (10:46)
[2023-01-25] MEDS: PATIENT'S OWN MEDICATION (NON-FORMULARY) (Icosapent Ethyl [Icosapent Ethyl] 1 GM Capsule) PO SCH (10:47)
[2023-01-25] MEDS: NICOTINE 21 MG/24 HOURS TOPICAL PATCH TD SCH (10:47)
[2023-01-25] MEDS: metoPROLOL SUCCINATE 25 MG TAB.SR.24H (FP) PO SCH (10:47)
[2023-01-25] MEDS: PRENATAL VITAMINS W/ FOLIC ACID TABLET (FP) PO SCH (10:47)
[2023-01-25] MEDS: FLUTICASONE PROP 0.05% 16 GM NASAL SPRAY NS SCH (10:47)
[2023-01-26] MEDS ORDERED: diazePAM 5 MG TABLET PO ONE (06:00)
[2023-01-26] MEDS ORDERED: methaDONE HCL 10 MG TABLET (FOR DETOX USE ONLY) PO ONE (10:00)
== END 2023-01-25 10:49 | disposition left against medical advice (07) | DRG 894 ==
LOC: YASAS 08:26 → Y3N 09:50
PROVIDERS: ADMIT Allergy & Immunology; ATTEND Surgery
PROC: HZ2ZZZZ Detoxification Services for Substance Abuse Treatment (ICD-10-PCS; principal; 2023-01-22)
DX: F11.23 Opioid dependence with withdrawal (principal); F13.230 Sedative, hypnotic or anxiolytic dependence with withdrawal, uncomplicated; F17.210 Nicotine dependence, cigarettes, uncomplicated; F19.24 Other psychoactive substance dependence with psychoactive substance-induced mood disorder; F41.9 Anxiety disorder, unspecified; F32.A Depression, unspecified; I25.10 Atherosclerotic heart disease of native coronary artery without angina pectoris; I10 Essential (primary) hypertension; Z95.5 Presence of coronary angioplasty implant and graft; E11.9 Type 2 diabetes mellitus without complications; Z79.85 Long-term (current) use of injectable non-insulin antidiabetic drugs; Z79.4 Long term (current) use of insulin; H91.92 Unspecified hearing loss, left ear; K21.9 Gastro-esophageal reflux disease without esophagitis; R79.89 Other specified abnormal findings of blood chemistry; Z97.4 Presence of external hearing-aid; Z99.89 Dependence on other enabling machines and devices
CPT/HCPCS: 36415; 71046-TC-FY; 80053; 82140; 82962; 85027; 86780; 87811; C9803-CS; U0003; U0005

== ENCOUNTER 2024-04-01 11:15 | Inpatient (IN) | payer OTHER ==
[2024-04-01 11:34] VITALS: BMI 30.4
[2024-04-01] MEDS ORDERED: diazePAM 5 MG TABLET PO PRN (12:11)
[2024-04-01] MEDS ORDERED: cloNIDine HCL 0.1 MG TABLET PO PRN (12:11)
[2024-04-01] MEDS ORDERED: P-EPHED 60MG/TRIPROLIDI 2.5MG TABLET PO PRN (12:25)
[2024-04-01] MEDS ORDERED: guaiFENesin 600 MG TABLET.ER (FP) PO PRN (12:25)
[2024-04-01] MEDS ORDERED: LOPERAMIDE HCL 2 MG CAPSULE PO PRN (12:25)
[2024-04-01] MEDS ORDERED: METHOCARBAMOL 500 MG TABLET PO PRN (12:25)
[2024-04-01] MEDS ORDERED: NALOXONE HCL 0.4 MG/ML VIAL IM PRN (12:25)
[2024-04-01] MEDS ORDERED: BENZONATATE 200 MG CAPSULE PO PRN (12:25)
[2024-04-01] MEDS ORDERED: NALOXONE (NARCAN) HCL 4 MG/0.1 ML SPRAY NS PRN (12:25)
[2024-04-01] MEDS ORDERED: BENZOCAINE/MENTHOL (CHLORASEPTIC ) LOZENGE MM PRN (12:25)
[2024-04-01] MEDS ORDERED: DICYCLOMINE HCL 10 MG CAPSULE PO PRN (12:25)
[2024-04-01] MEDS ORDERED: NICOTINE POLACRILEX 2 MG LOZENGE BC PRN (12:25)
[2024-04-01] MEDS ORDERED: BISMUTH SUBSALICYLATE 262 MG/15 ML BTL PO PRN (12:25)
[2024-04-01] MEDS ORDERED: IBUPROFEN 400 MG TABLET (FP) PO PRN (12:25)
[2024-04-01] MEDS ORDERED: MAG HYDROX/AL HYDROX/SIMETH 30 ML UNIT-DOSE CUP PO PRN (12:25)
[2024-04-01] MEDS ORDERED: ACETAMINOPHEN 325 MG TABLET (FP) PO PRN (12:25)
[2024-04-01] MEDS ORDERED: NICOTINE POLACRILEX 2 MG GUM BUC PRN (12:25)
[2024-04-01] MEDS ORDERED: POLYETHYLENE GLYCOL (HEALTHYLAX) 3350 17 GM PACKET PO PRN (12:25)
[2024-04-01] MEDS ORDERED: IBUPROFEN 600 MG TABLET (FP) PO PRN (12:25)
[2024-04-01] MEDS ORDERED: ONDANSETRON *ODT* 4 MG TABLET SL PRN (12:25)
[2024-04-01] MEDS ORDERED: MAGNESIUM HYDROX 2400MG/30ML ORAL SUSPENSION 30 ML CUP PO PRN (12:25)
[2024-04-01] MEDS: INSULIN ASPART SLIDING SCALE (NOVOLOG) 1 VIAL SQ SCH (14:37)
[2024-04-01] MEDS ORDERED: ALBUTEROL SO4 HFA INHALER IH PRN (16:10)
[2024-04-01] MEDS ORDERED: metFORMIN HCL 500 MG TABLET (FP) PO SCH (16:30)
[2024-04-01] MEDS ORDERED: INSULIN (NOVOLOG) ASPART 100 UNITS/ML 10ML VIAL ONE (17:21)
[2024-04-01] MEDS: hydrOXYzine PAMOATE 25 MG CAPSULE (FP) PO PRN (17:28)
[2024-04-01] MEDS: diazePAM 5 MG TABLET PO SCH (17:52)
[2024-04-01] MEDS ORDERED: methaDONE HCL 10 MG TABLET (FOR DETOX USE ONLY) PO ONE ×2 (19:30→22:00)
[2024-04-01 20:10] VITALS: BP 116/66; PULSE 65; RESP 16; TEMP 97.5
[2024-04-01] MEDS ORDERED: TICAGRELOR 90 MG TABLET PO SCH (22:00)
[2024-04-01] MEDS ORDERED: MELATONIN 5 MG TABLETS PO SCH (22:00)
[2024-04-01] MEDS ORDERED: GABAPENTIN 300 MG CAPSULE PO SCH (22:00)
[2024-04-01] MEDS ORDERED: THIAMINE 100 MG TABLET PO SCH (22:00)
[2024-04-01] MEDS ORDERED: ROSUVASTATIN CA 40 MG TABLET PO SCH (22:00)
[2024-04-01] MEDS ORDERED: SODIUM CHLORIDE NASAL SPRAY 44 ML BOTTLE NS SCH (22:00)
[2024-04-02] MEDS ORDERED: ASPIRIN 81 MG CHEWABLE TABLETS PO SCH (10:00)
[2024-04-02] MEDS ORDERED: PRENATAL VITAMINS W/ FOLIC ACID TABLET (FP) PO SCH (10:00)
[2024-04-03] MEDS ORDERED: diazePAM 5 MG TABLET PO SCH (06:00)
[2024-04-03] MEDS ORDERED: methaDONE HCL 10 MG TABLET (FOR DETOX USE ONLY) PO ONE (10:00)
[2024-04-04] MEDS ORDERED: diazePAM 5 MG TABLET PO SCH (06:00)
[2024-04-05] MEDS ORDERED: diazePAM 5 MG TABLET PO ONE (06:00)
[2024-04-05] MEDS ORDERED: methaDONE HCL 10 MG TABLET (FOR DETOX USE ONLY) PO ONE (10:00)
== END 2024-04-01 20:10 | disposition left against medical advice (07) | DRG 894 ==
LOC: YASAS 11:15 → Y6N 13:39
PROVIDERS: ADMIT Allergy & Immunology; ATTEND Surgery
PROC: HZ2ZZZZ Detoxification Services for Substance Abuse Treatment (ICD-10-PCS; principal; 2024-04-01)
DX: F11.23 Opioid dependence with withdrawal (principal); F13.230 Sedative, hypnotic or anxiolytic dependence with withdrawal, uncomplicated; F17.210 Nicotine dependence, cigarettes, uncomplicated; F41.9 Anxiety disorder, unspecified; H91.93 Unspecified hearing loss, bilateral; I25.10 Atherosclerotic heart disease of native coronary artery without angina pectoris; I10 Essential (primary) hypertension; I25.2 Old myocardial infarction; Z95.5 Presence of coronary angioplasty implant and graft; E11.9 Type 2 diabetes mellitus without complications; Z79.4 Long term (current) use of insulin
CPT/HCPCS: 80305; 80307; 82962; 93005; 93010